=== PATIENT | male | born 1955 | race Caucasian/White ===

== ENCOUNTER → 2017-04-07 | Outpatient (CLI) | payer OTHER, MEDICAID | LOC: FIMAGING 07:42 | PROVIDERS: ATTEND Surgery | DX: C18.7 Malignant neoplasm of sigmoid colon (principal); Z85.038 Personal history of other malignant neoplasm of large intestine ==

== ENCOUNTER 2017-05-19 06:00 | Inpatient (IN) | payer OTHER, MEDICAID ==
[~2017-05-19 06:00] MED LIST: ceFAZolin 3 GM in D5W 100 ML IV ONE
[2017-05-19] MEDS ORDERED: LIDOCAINE 1% 2 ML INJ ID PRN (06:14)
[2017-05-19] MEDS ORDERED: LR 1,000 ML IV ONE (06:14)
[2017-05-19] MEDS ORDERED: BUPIVACAINE 0.5% 30 ML SDV ONE (07:02)
--- NOTE | 2017-05-19 07:06 | PDHPUP ---
History & Physical Update H&P update statement: This history and physical update is based on an assessment of the patient which was completed after admission or registration (within 24 hours), but prior to the surgery/procedure. H&P update: H&P reviewed & patient examined, no change in patient's condition since H&P completed
[2017-05-19] MEDS ORDERED: MIDAZOLAM 2 MG/2 ML VIAL IVP ONE (07:16)
--- NOTE | 2017-05-19 07:16 | PDANEPAE ---
ANE History of Present Illness Large ventral hernia ANE Past Medical History - Cardiovascular History Hx Hypertension: No Hx Arrhythmias: No Hx Chest Pain: No Hx Coronary Artery / Peripheral Vascular Disease: No Hx CHF / Valvular Disease: No Hx Palpitations: No - Pulmonary History Hx COPD: Yes Hx Asthma/Reactive Airway Disease: Yes Hx Recent Upper Respiratory Infection: No Hx Oxygen in Use at Home: No Hx Sleep Apnea: No Sleep Apnea Screening Result - Last Documented: Positive Pulmonary History Comment: CHRONIC PULMONARY PNEUMONITIS. 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 - Neurologic History Hx Cerebrovascular Accident: No Hx Seizures: No Hx Dementia: No - Endocrine History Hx Diabetes: Yes Endocrine History Comment: HYPOTHYROID - Renal History Hx Renal Disorders: Yes Renal History Comment: KIDNEY FAILURE POST SURGERY WITH BOWEL RESECTION - NOW RESOLVED - Liver History Hx Hepatic Disorders: No - Neurological & Psychiatric Hx Hx Neurological and Psychiatric Disorders: Yes Neurological / Psychiatric History Comment: ANXIETY/DEPRESSION - Cancer History Hx Cancer: Yes Cancer History Comment: COLON CANCER - Congenital Disorder History Hx Congenital Disorders: No - GI History Hx Gastrointestinal Disorders: Yes Gastrointestinal History Comment: COLON RESECTION/COLOSTOMY - Other Health History Other Health History: DUMPING SYNDROME - Chronic Pain History Chronic Pain: Yes (L KNEE, NECK, SCIATICA) - Surgical History Prior Surgeries: BOWEL RESECTION W/COLOSTOMY. L KNEE SURG. R TKA. CERVICAL FUSION. HERNIA REPAIR ANE Review of Systems - Exercise capacity METS (RN): 4 METS ANE Patient History - Allergies Allergies/Adverse Reactions: baclofen Allergy (Verified 05/11/17 11:25) - Home Medications Home Medications: Albuterol [Proventil Inhaler HFA (*)] 1 - 2 puffs IH DAILY PRN 05/09/17 [Last Taken 05/19/17 04:45] Cyclobenzaprine [Flexeril 10 MG (*)] 10 mg PO BID 05/09/17 [Last Taken 05/18/17 23:30] Diphenoxylate HCl/Atrop Sulf [Lomotil Tab (*)] 1 tab PO BID PRN 05/09/17 [Last Taken 05/18/17] Fluticasone/Salmeter 250/50Mcg [Advair 250/50 (*)] 1 puffs IH DAILY 05/09/17 [ Last Taken 05/19/17 04:45] HYDROcodone/APAP 10/325 [[place] 10/325 (*)] 1 tab PO Q8HRS PRN 05/09/17 [Last Taken 05/18/17 23:00] Levothyroxine [Synthroid 50 mcg (*)] 50 mcg PO DAILY06 05/09/17 [Last Taken 04/29 09:30] Mirabegron [Myrbetriq] 25 mg PO DAILY 05/09/17 [Last Taken 05/18/17 23:00] Phentermine HCl [Adipex-P] 37.5 mg PO DAILY 05/09/17 [Last Taken 05/18/17 09:30] Sertraline HCl [Zoloft 50mg (*)] 50 mg PO HS 05/09/17 [Last Taken 05/18/17 23:00 ] Zolpidem Tartrate [Ambien 10 mg] 10 mg PO HS 05/09/17 [Last Taken 05/18/17 23:00 ] - NPO status NPO Since - Liquids (Date): 05/18/17 NPO Since - Liquids (Time): 23:15 NPO Since - Solids (Date): 05/18/17 NPO Since - Solids (Time): 22:45 - Smoking Hx Smoking Status: Never smoked - Family Anes Hx Family Hx Anesthesia Complications: NEG ANE Labs/Vital Signs - Vital Signs Blood Pressure: 118/75 Heart Rate: 71 Respiratory Rate: 18 O2 Sat (%): 95 Height: 175.26 cm Weight: 122.47 kg ANE Physical Exam - Airway Neck exam: FROM (S/P C5-7 fusion) Mallampati Score: Class 1 Mouth exam: dentures - Pulmonary Pulmonary: no respiratory distress - Cardiovascular Cardiovascular: regular rate and rhythym - ASA Status ASA Status: III ANE Anesthesia Plan Anesthesia Plan: general endotracheal anesthesia
[2017-05-19] MEDS ORDERED: MIDAZOLAM 2 MG/2 ML VIAL ONE (07:17)
[2017-05-19] MEDS ORDERED: fentaNYL 100 MCG/2 ML INJ ONE ×5 (07:20→14:14)
[2017-05-19] MEDS ORDERED: PROPOFOL 200 MG/20 ML VIAL ONE ×2 (07:20→10:20)
[2017-05-19] MEDS ORDERED: LIDOCAINE 2% 5 ML SDV ONE (07:22)
[2017-05-19] MEDS ORDERED: ROCURONIUM 50 MG/5 ML VIAL ONE ×3 (07:23→10:44)
[2017-05-19] MEDS ORDERED: DEXAMETHASONE 4 MG/ML VIAL ONE (08:41)
[2017-05-19] MEDS ORDERED: PROPOFOL/EMULSION 500 MG/50 ML BOTTLE IV ONE ×2 (08:43→11:17)
[2017-05-19] MEDS ORDERED: THROMBIN (BOVINE) 20,000 UNIT SPRAY TP ONE (09:05)
[2017-05-19] MEDS ORDERED: ONDANSETRON 4 MG/2 ML VIAL IVP PRN (10:02)
[2017-05-19] MEDS ORDERED: PROMETHAZINE HCL 25 MG/ML INJ IVP PRN (10:02)
[2017-05-19] MEDS ORDERED: NALOXONE HCL 0.4 MG/ML INJ IVP PRN ×2 (10:02→14:36)
[2017-05-19] MEDS ORDERED: PHENYLEPHRINE 0.5% NASAL 15 ML SPRAY ONE (10:13)
[2017-05-19] MEDS ORDERED: ERTAPENEM 1 GM in NS 100 ML IV ONE (12:00)
[2017-05-19] MEDS ORDERED: SUGAMMADEX SODIUM 200 MG/2 ML VIAL IVP ONE (13:01)
[2017-05-19] MEDS ORDERED: ONDANSETRON 4 MG/2 ML VIAL ONE (13:01)
[2017-05-19] MEDS ORDERED: PHENYLEPHRINE HCL 100 MCG/ML SYR ONE (13:10)
--- NOTE | 2017-05-19 13:36 | POSTOPPROG ---
Post Op Note Date of Operation: 05/19/17 Surgeon: Sharon Elizabeth Advocacy Director: king marina Anesthesiologist: nicole Anesthesia: GET(General Endotracheal) Pre-op Diagnosis: incarcerated ventral hernia Post-op Diagnosis: same Indication: 61 yo with incarcerated ventral hernia Procedure: lap component release, open ventral hernia repair with mesh, small bowel re Findings: large loss of domain Inf/Abcess present in the surg proc area at time of surgery?: Yes Depth: Organ Space EBL: 100-500 Drains: Antonio Frost Specimen(s): small bowel
[2017-05-19] MEDS: fentaNYL 100 MCG/2 ML INJ IVP PRN ×4 (13:51→14:22)
--- NOTE | 2017-05-19 13:59 | POSTANESTH ---
Post Anesthetic Evaluation Cardiovascular Status: Normal, Stable Respiratory Status: Normal, Stable Level of Consciousness/Mental Status: Can Participate in Eval, Alert and Oriented Pain Control: Adequate, Prn Tx Ordered Nausea/Vomiting Control: Adequate, Prn Tx Ordered Complications Possibly Related to Anesthesia: None Noted
[2017-05-19] MEDS ORDERED: HYDROmorphONE/DILAUDID 1 MG/ML SYR ONE (14:03)
[2017-05-19] MEDS: HYDROmorphONE/DILAUDID 1 MG/ML SYR IVP PRN ×3 (14:05→14:26)
[2017-05-19] MEDS: morphINE PCA 30 MG/30 ML PCA IV PRN (15:19)
[2017-05-19] MEDS: NS 1,000 ML IV SCH (15:19)
[2017-05-19] MEDS: ONDANSETRON 4 MG/2 ML VIAL IVP PRN (18:25)
[2017-05-19] MEDS ORDERED: ALBUTEROL 200 PUFFS/18 GM MDI IH PRN (20:09)
--- NOTE | 2017-05-19 20:52 | GCON ---
[f rep st] CONSULTATION THIS IS A MEDICINE CONSULTATION AT THE REQUEST OF DR. SHARON ELIZABETH FOR GENERAL MEDICAL EVALUATION AND MANAGEMENT OF CHRONIC MEDICAL ISSUES INCLUDING COPD. REFERRING PHYSICIAN: Sharon Elizabeth MD CHIEF COMPLAINT: Status post ventral hernia. HISTORY: This is a 61-year-old man with past medical history of colon cancer, status post partial c olectomy and colostomy placement, as well as hypersensitivity pneumonitis/COPD/reactive airways dise ase, who is being monitored in the ICU status post open ventral hernia repair with mesh. Per report , this was an incarcerated ventral hernia and surgery performed today without clear complication. T he patient states he is currently doing well, with his pain controlled. He does have an NG in place , which he states is uncomfortable, but otherwise no real active complaints. PAST MEDICAL HISTORY: Includes: 1. Sigmoid colon cancer, status post partial colectomy. 2. Hypersensitivity pneumonitis versus COPD/reactive airways disease. 3. History of PE. 4. Hypothyroidism. 5. Morbid obesity. 6. Complications post colectomy of peritonitis, with acute kidney failure. PAST SURGICAL HISTORY: Includes: 1. Partial colectomy. 2. Colostomy. 3. Cervical fusion. 4. Ventral hernia repair, as per above. FAMILY HISTORY: Reviewed and noncontributory. SOCIAL HISTORY: The patient is a nondrinker and nonsmoker. The patient is . REVIEW OF SYSTEMS: Ten-point review of systems obtained negative except as per HPI. HOME MEDICATIONS: Include: 1. Ambien. 2. Flexeril. 3. Synthroid. 4. Jackson. 5. Lomotil. 6. Phentermine. 7. Advair. 8. Albuterol. 9. Sertraline. 10. Myrbetriq. ALLERGIES: Baclofen. PHYSICAL EXAM: VITAL SIGNS: BP 111/64, heart rate 69, respiratory rate 12, O2 sat is 100% on 3 L, temperature is 36.6. GENERAL APPEARANCE: This is an obese man. He is awake and alert. He is in mild distress. EYES: Anicteric. HEENT: NG-tube with greenish output. Oropharynx clear. CARDIOVASCULAR: Regular rate and rhythm, no MRG. PULMONARY: CTA bilaterally to anterior exam. ABDOMEN: Soft, decreased bowel sounds, there is a colostomy in place as well as a midline incision that is bandaged, with an abdominal binder in place. There is diffuse tenderness to palpation, with out rebound or guarding. EXTREMITIES: No clubbing, cyanosis, or edema. SKIN: Warm, dry, well per fused. NEURO/PSYCH: Oriented, appropriate, pleasant. CLINICAL DATA: CBC from 05/15 is within normal limits. Chemistry from the same date is remarkable only for a BUN of 25. ASSESSMENT/PLAN: This is a 61-year-old man with past medical history of hypersensitivity pneumoniti s versus chronic obstructive pulmonary disease as well as colon cancer, status post partial colectom y with colostomy placement, and ventral hernia which is now status post ventral hernia repair. 1. Status post ventral hernia repair. Fairly extensive surgery with a massive ventral hernia prese nt preop. He is doing well thus far postoperatively. He has not yet had return of bowel sounds. Joel jefferson has an NG in place. He will be monitored in ICU for the time being. He will be kept n.p.o. 2. Chronic obstructive pulmonary disease versus hypersensitivity pneumonitis versus reactive airway s disease. The patient states he has either all of these diagnoses or some sort of unusual variant of the 3. He is followed by Pulmonary. He has been relatively asymptomatic, though he uses Advair and p.r.n. albuterol. His pulmonary exam at the time of my evaluation seems to be benign. He is sa turating 100% on 3 L, this likely could be titrated down. Given his body habitus, he likely has a c omponent of obstructive sleep apnea/obesity hypoventilation syndrome. 3. History of sigmoid colon cancer, status post colectomy with colostomy placement. He has been in terested in having colostomy take down, but this is being deferred for the time being. Followed by Surgery. 4. Chronic pain, with continuous narcotic use and dependency. Patient on Jackson and Flexeril as an outpatient. Pain is controlled on those medications. 5. Depression. Continued on sertraline. 6. Disposition: Inpatient status. 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 The patient is new to my care. Old records reviewed and summarized as per HPI and Past Medical Hist ory. Care plan reviewed with surgical PA. Medicine will continue to follow while in-house. /[id number]/MODL
[2017-05-20] MEDS: morphINE PCA 30 MG/30 ML PCA IV PRN ×2 (00:08→12:37)
[2017-05-20] MEDS: NS 1,000 ML IV SCH (00:09)
[2017-05-20] MEDS ORDERED: ZOLPIDEM TARTRATE 5 MG TAB PO ONE (01:38)
[2017-05-20] MEDS: KETOROLAC 30 MG/1 ML SDV IVP PRN ×2 (01:44→07:36)
[2017-05-20 05:51] LABS: % IMMATURE GRANULYOCYTES 0.5 % (0.0-1.1); ABSOLUTE IMMATURE GRANULOCYTES 0.06 10^3/uL (0.00-0.10); ADD DIFF? NO; ADD MORPH? NO; ADD SCAN? NO; ATYPICAL LYMPHOCYTE FLAG 0 (0-99); FRAGMENT RBC FLAG 0 (0-99); HEMATOCRIT 34.3 % (40.0-51.0); HEMOGLOBIN 11.1 g/dL (13.7-17.5); LEFT SHIFT FLG 50 (0-99); LIPEMIA HEMOLYSIS FLAG 80 (0-99); MEAN CELL HEMOGLOBIN 30.3 pg (27.9-34.1); MEAN CELL HEMOGLOBIN CONCENTR. 32.4 g/dL (32.4-36.7); MEAN CELL VOLUME 93.7 fL (81.5-99.8); MEAN PLATELET VOLUME 10.5 fL (8.7-11.7); PLATELET CLUMPS FLAG 10 (0-99); PLATELET COUNT 153 10^3/uL (150-400); RED BLOOD CELL COUNT 3.66 10^6/uL (4.40-6.38); RED CELL DISTRIBUTION WIDTH 13.6 % (11.5-15.2)
[2017-05-20 06:01] LABS: INR 1.18 (0.83-1.16)
[2017-05-20 07:31] LABS: ANION GAP 7 mEq/L (8-16); CALCIUM 7.8 mg/dL (8.5-10.4); CARBON DIOXIDE 26 mEq/l (22-31); CHLORIDE 110 mEq/L (97-110); GLOMERULAR FILTRATION RATE > 60; GLUCOSE 108 mg/dL (70-100); POTASSIUM 4.3 mEq/L (3.5-5.2); SODIUM 143 mEq/L (134-144)
[2017-05-20] MEDS ORDERED: FLUTICASONE/SALMETER 250/50MCG DISKUS IH SCH (09:00)
[2017-05-20] MEDS: ERTAPENEM 1 GM in NS 100 ML IV SCH (09:16)
[2017-05-20] MEDS: FLUTICASONE/SALMETER 250/50MCG DISKUS IH SCH (09:48)
--- NOTE | 2017-05-20 10:06 | HOSPPROG ---
Hospitalist Progress Note Assessment/Plan: DIAGNOSES: -status post large ventral hernia repair -postoperative ileus -history of COPD, as well as possible obesity related breathing issues, all stable at present -chronic pain syndrome on chronic medications for that -history of PE PLANS: -continue current respiratory management -continue current pain management is that seem satisfactory to him -DVT prophylaxis - will follow the blood in drains in his blood counts closely; he is not currently on DVT prophylaxis medications, I will review risk benefit with Dr. Elizabeth SUBJECTIVE: The patient has modest amount of abdominal pain at this time, has had some rumbling but no flatus, no nausea No shortness of breath chest pain or cough No fever symptoms OBJECTIVE Vitals reviewed: Stable without fever Architectural Inspector, my review: Sinus Exam: alert oriented relaxed skin warm dry color ok resps not labored lungs diminished but clear BSs heart regular abd soft, bowel sounds present, some tenderness, blood in both drains limbs warm, no edema iv site ok Laboratory: Some anemia hemoglobin 11 White blood cell count at 12,000 Stable metabolic panel Objective: Vital Signs Temp Pulse Resp BP Pulse Ox 36.6 C 73 15 124/59 H 97 05/20/17 08:00 05/20/17 08:00 05/20/17 08:00 05/20/17 08:00 05/20/17 08:00 Laboratory Results 05/20/17 05:37 05/20/17 05:37 05/19/17 05/20/17 05/21/17 06:59 06:59 06:59 Intake Total 2255 Output Total 1110 Balance 1145 PT 15.0 SEC (12.0-15.0) 05/20/17 05:37 INR 1.18 (0.83-1.16) H 05/20/17 05:37 ICD10 Worksheet Patient Problems: Problems Problem Status Onset Ventral incisional hernia without obstruction or gangrene Acute S/P small bowel resection Acute - ICD10 Problem Qualifiers (1) S/P small bowel resection
--- NOTE | 2017-05-20 11:55 | SOAPPROG ---
SOAP Progress Note Assessment/Plan: Assessment: POD # 1 s/p laparoscopic right component separation, open adhesiolysis with small bowel resection and ventral hernia repair with 20X25 Symbotex dual sided mesh. 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 Expect ileus due to 6 hours OR with adhesiolysis - Keep Lopez one more day for accurate Is and Os. May have some increased abdominal pressure due to hernia repair FEN - NPO excepts meds and occasional ice chips for comfort. May have hard candy or cough drops to ease discomfort of NG Heme/ID - Invanz day 2 of 7. Bowel resection at surgery with permanent mesh. Proph - Protonix and may start Lovenox. Dr. Ramos to discuss with pharmacy if will need bid dosing Endo - Dr. Ramos to manage hypothyroidism Dispo - Med surg, Inpatient. continue PT/OT S: Pain controlled. No nausea. Worked with PT this am O: Lying in bed. Dressing with scant stain JPs with serosanguinous fluid Lungs decreased at bases Regular rate Bowel sounds hypoactive Plan: 05/20/17 11:46 Objective: Vital Signs Temp Pulse Resp BP Pulse Ox 36.6 C 73 15 124/59 H 97 05/20/17 08:00 05/20/17 08:00 05/20/17 08:00 05/20/17 08:00 05/20/17 08:00 Laboratory Results 05/20/17 05:37 05/20/17 05:37 05/19/17 05/20/17 05/21/17 05:59 05:59 05:59 Intake Total 2255 Output Total 1110 140 Balance 1145 -140 PT 15.0 SEC (12.0-15.0) 05/20/17 05:37 INR 1.18 (0.83-1.16) H 05/20/17 05:37 ICD10 Worksheet Patient Problems: Problems Problem Status Onset S/P small bowel resection Acute Ventral incisional hernia without obstruction or gangrene Acute - ICD10 Problem Qualifiers (1) Ventral incisional hernia without obstruction or gangrene (2) S/P small bowel resection
--- NOTE | 2017-05-20 13:34 | GOP ---
[f rep st] OPERATIVE REPORT DATE OF OPERATION: 05/19/2017 SURGEON: Sharon Elizabeth MD PROFESSOR OF ASTRONOMY: MD Dilcia Billingsley, RAHUL ANESTHESIA: General. ANESTHESIOLOGIST: Daryn Rodriguez MD PREOPERATIVE DIAGNOSIS: Incarcerated ventral hernia. POSTOPERATIVE DIAGNOSIS: Incarcerated ventral hernia. PROCEDURE PERFORMED: Laparoscopic component released of left external oblique, open laparotomy with adhesiolysis x 90 minutes, small-bowel resection, and ventral hernia repair with mesh. FINDINGS: Complete loss of domain. SPECIMENS: Small bowel. ESTIMATED BLOOD LOSS: 250 cc. INDICATIONS: The patient is a 61-year-old man with a history of colon cancer, who has developed a large hernia. He is very symptomatic from it. DESCRIPTION OF PROCEDURE: The patient was brought into the operating room, placed supine on the table, and general anesthesia was administered. His ostomy was sequestered. The remaining abdomen was prepped and draped in the usual sterile fashion. I initially made an incision approximately in the 7th intercostal space, and dissected down through the subcutaneous tissues. I created a space and inserted a balloon-tip trocar directed toward the anterior superior iliac spine. I placed a camera and I performed hand insufflation of the balloon. I then connected this to 12 mmHg. I did not see rectus above, but elected to divide India's layer with electrocautery. I placed a 5 mm trocar lateral to the initial trocar and divided India's. There was 1 area of bleeding, and hemostasis was controlled with electrocautery. Next, I removed the working port and I continued my dissection down until I encountered the rectus. This was very deep. I attempted numerous times to insert the balloon in this space. I ultimately was able to place a dissecting balloon to separate out the external oblique from the internal oblique. I placed a camera and, under direct vision, performed hand insufflation. I then removed the balloon and attempted insufflation, however since this was so deep the trocar kept moving into the subcutaneous space. I then obtained a 10 mm extra long trocar and was able to place this underneath the external oblique. I placed insufflation to 12 mmHg. I then deepened the 2nd 5 mm trocar. I was then able to divide the rectus from the inguinal ligament up to the initial trocar. Once this was released, I placed thrombin in the wound. Attention was then drawn to the open hernia repair. I made an incision over his previous upper midline scar and very superficially encountered the hernia sac. I continued my dissection to fully dissect out the hernia. I had to perform lysis of adhesions for greater than 90 minutes. During adhesiolysis, one small enterotomy was made which was quickly controlled with a 3-0 Vicryl. After the bowel was free, I examined for any additional injuries. The area where the enterotomy occured, the bowel was thickened. I elected to perform a small bowel resection. I aligned the small bowel on antimesenteric borders. I placed 3-0 Vicryl stay sutures. I made an enterotomy in each limb of the bowel and inserted a FRANCISCA 75 to create an end-to-end functional [id number] anastomosis. I then closed the enterotomy and removed the small piece of thickened bowel with a FRANCISCA 75. The mesenteric defect was closed with 3-0 Vicryl. There was minimal spillage. The anastomosis was widely patent, and no leaks were noted. I then ran his entire small bowel, and no other injuries were noted. Attention was then drawn to re-approximating fascia. Unfortunately, even with the component release, there was not enough release to bring the fascia together. I did not have the option to perform a component release on the right side due to the ostomy. I selected a piece of Symbotex mesh 20/25 mesh to fix the hernia. I began placing stay sutures through the fascia. As I was coming around the pelvis, I noted that the fascial layer was much deeper. He essentially had complete loss of abdominal domain. I placed an intraperitoneal drain which exited the left lower quadrant, and sutured it in place with 3-0 nylon. I placed the Symbotex mesh and sutured this into place circumferentially around the fascia. I checked the placement of the mesh to the fascial edges numerous times to make sure that there was no gap where there could be potential breach allowing bowel to come through the mesh. Next, I was able to close the hernia sac over the fascia with #1 PDS. The hernia sac was very thickened. I placed a subcutaneous 15 round silicone drain, which was also sutured into place with 3-0 nylon. The skin was closed with lj. An Aquacel Ag surgical dressing was applied over the midline incision. He was awakened in the operating room, extubated, and transferred to PACU in stable condition. /[id number]/MODL MTDD
[2017-05-21] MEDS: NS 1,000 ML IV SCH ×3 (00:16→21:07)
[2017-05-21] MEDS: ERTAPENEM 1 GM in NS 100 ML IV SCH (08:03)
--- NOTE | 2017-05-21 10:21 | SOAPPROG ---
SOAP Progress Note Assessment/Plan: Assessment: POD # 2 s/p laparoscopic right component separation, open adhesiolysis with small bowel resection and ventral hernia repair with 20X25 Symbotex dual sided mesh. 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 Expect ileus due to 6 hours OR with adhesiolysis. Continue NG - Can remove Lopez. May have some increased abdominal pressure due to hernia repair FEN - NPO excepts meds and occasional ice chips for comfort. May have hard candy or cough drops to ease discomfort of NG Heme/ID - Invanz day 3 of 7. Bowel resection at surgery with permanent mesh. Proph - Protonix and Lovenox Endo - Dr. Ramos to manage hypothyroidism Dispo - Inpatient. continue PT/OT S: Pain controlled. No nausea. O: Lying in bed. Dressing with scant stain JPs with serosanguinous fluid Lungs decreased at bases Regular rate Bowel sounds hypoactive Plan: 05/20/17 11:46 05/21/17 10:20 05/21/17 13:14 Objective: Vital Signs Temp Pulse Resp BP Pulse Ox 36.6 C 83 18 111/83 H 94 05/21/17 08:00 05/21/17 08:00 05/21/17 08:00 05/21/17 08:00 05/21/17 08:00 Laboratory Results 05/20/17 05:37 05/20/17 05:37 05/20/17 05/21/17 05/22/17 05:59 05:59 05:59 Intake Total 2255 923 1196 Output Total 1110 1691 100 Balance 1145 -768 1096 PT 15.0 SEC (12.0-15.0) 05/20/17 05:37 INR 1.18 (0.83-1.16) H 05/20/17 05:37 ICD10 Worksheet Patient Problems: Problems Problem Status Onset S/P small bowel resection Acute Ventral incisional hernia without obstruction or gangrene Acute - ICD10 Problem Qualifiers (1) Ventral incisional hernia without obstruction or gangrene (2) S/P small bowel resection
[2017-05-21] MEDS: morphINE PCA 30 MG/30 ML PCA IV PRN ×2 (11:54→23:01)
[2017-05-21 12:44] LABS: % IMMATURE GRANULYOCYTES 0.5 % (0.0-1.1); ABSOLUTE IMMATURE GRANULOCYTES 0.06 10^3/uL (0.00-0.10); ADD DIFF? NO; ADD MORPH? NO; ADD SCAN? NO; ATYPICAL LYMPHOCYTE FLAG 0 (0-99); FRAGMENT RBC FLAG 0 (0-99); HEMATOCRIT 31.5 % (40.0-51.0); HEMOGLOBIN 9.9 g/dL (13.7-17.5); LEFT SHIFT FLG 30 (0-99); LIPEMIA HEMOLYSIS FLAG 80 (0-99); MEAN CELL HEMOGLOBIN 30.2 pg (27.9-34.1); MEAN CELL HEMOGLOBIN CONCENTR. 31.4 g/dL (32.4-36.7); MEAN PLATELET VOLUME 10.2 fL (8.7-11.7); PLATELET CLUMPS FLAG 0 (0-99); PLATELET COUNT 136 10^3/uL (150-400); RED BLOOD CELL COUNT 3.28 10^6/uL (4.40-6.38)
[2017-05-21 12:59] LABS: ANION GAP 5 mEq/L (8-16); CALCIUM 7.9 mg/dL (8.5-10.4); CARBON DIOXIDE 28 mEq/l (22-31); CHLORIDE 111 mEq/L (97-110); CREATININE 0.9 mg/dL (0.7-1.3); GLOMERULAR FILTRATION RATE > 60; GLUCOSE 99 mg/dL (70-100); POTASSIUM 4.3 mEq/L (3.5-5.2); SODIUM 144 mEq/L (134-144)
--- NOTE | 2017-05-21 15:24 | HOSPPROG ---
Hospitalist Progress Note Assessment/Plan: DIAGNOSES: -status post large ventral hernia repair -postoperative ileus -expected post hemorrhagic anemia after surgery -history of COPD, as well as possible obesity related breathing issues, all stable at present -chronic pain syndrome on chronic medications for that -history of PE PLANS: -continue current respiratory management -continue current pain management is that seem satisfactory to him -DVT prophylaxis at this time will add lovenox, follow closely SUBJECTIVE: really not much pain no flatus, some rumbling no sob, chest pain or cough OBJECTIVE Vitals reviewed: Stable without fever Exam: alert oriented relaxed skin warm dry color ok resps not labored lungs diminished but clear BSs heart regular abd soft, bowel sounds present, some tenderness, drain fluid less bloody limbs warm, no edema iv site ok Laboratory: anemia slightly worse at 9.9 Objective: Vital Signs Temp Pulse Resp BP Pulse Ox 37.1 C 79 18 114/79 97 05/21/17 11:00 05/21/17 14:00 05/21/17 14:00 05/21/17 14:00 05/21/17 14:00 Laboratory Results 05/21/17 12:38 05/21/17 12:38 05/20/17 05/21/17 05/22/17 06:59 06:59 06:59 Intake Total 2255 2119 Output Total 1110 1791 705 Balance 1145 328 -705 PT 15.0 SEC (12.0-15.0) 05/20/17 05:37 INR 1.18 (0.83-1.16) H 05/20/17 05:37 ICD10 Worksheet Patient Problems: Problems Problem Status Onset S/P small bowel resection Acute Ventral incisional hernia without obstruction or gangrene Acute - ICD10 Problem Qualifiers (1) S/P small bowel resection
[2017-05-21] MEDS: ONDANSETRON 4 MG/2 ML VIAL IVP PRN (15:44)
[2017-05-21] MEDS ORDERED: ZOLPIDEM TARTRATE 5 MG TAB PO ONE (20:15)
[2017-05-22 04:52] LABS: % IMMATURE GRANULYOCYTES 0.5 % (0.0-1.1); ABSOLUTE IMMATURE GRANULOCYTES 0.06 10^3/uL (0.00-0.10); ADD DIFF? NO; ADD MORPH? NO; ADD SCAN? NO; ATYPICAL LYMPHOCYTE FLAG 0 (0-99); FRAGMENT RBC FLAG 0 (0-99); HEMATOCRIT 29.7 % (40.0-51.0); HEMOGLOBIN 9.2 g/dL (13.7-17.5); LEFT SHIFT FLG 30 (0-99); LIPEMIA HEMOLYSIS FLAG 80 (0-99); MEAN CELL HEMOGLOBIN 30.3 pg (27.9-34.1); MEAN CELL VOLUME 97.7 fL (81.5-99.8); MEAN PLATELET VOLUME 10.4 fL (8.7-11.7); PLATELET CLUMPS FLAG 0 (0-99); PLATELET COUNT 143 10^3/uL (150-400); RED BLOOD CELL COUNT 3.04 10^6/uL (4.40-6.38); RED CELL DISTRIBUTION WIDTH 13.8 % (11.5-15.2)
[2017-05-22 05:07] LABS: ANION GAP 6 mEq/L (8-16); CALCIUM 7.7 mg/dL (8.5-10.4); CARBON DIOXIDE 28 mEq/l (22-31); CHLORIDE 110 mEq/L (97-110); CREATININE 0.8 mg/dL (0.7-1.3); GLOMERULAR FILTRATION RATE > 60; GLUCOSE 85 mg/dL (70-100); POTASSIUM 4.2 mEq/L (3.5-5.2); SODIUM 144 mEq/L (134-144)
[2017-05-22] MEDS: ERTAPENEM 1 GM in NS 100 ML IV SCH (08:17)
[2017-05-22] MEDS: ALBUTEROL 200 PUFFS/18 GM MDI IH PRN (08:28)
[2017-05-22] MEDS: FLUTICASONE/SALMETER 250/50MCG DISKUS IH SCH (08:29)
[2017-05-22] MEDS: morphINE PCA 30 MG/30 ML PCA IV PRN ×2 (09:10→22:02)
[2017-05-22] MEDS: ENOXAPARIN 40 MG/0.4 ML SYR SC SCH (09:10)
--- NOTE | 2017-05-22 11:57 | SOAPPROG ---
SOAP Progress Note Assessment/Plan: Assessment: 61yo M POD #3 s/p lap R component separation, open adhesiolysis with small bowel resection and ventral hernia repair with 20X25 Symbotex dual sided mesh. 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 NG clamp trial. - D/c pulido FEN - NPO for now until NG out Heme/ID - Invanz day 4 of 7. Bowel resection at surgery with permanent mesh. Proph - Protonix and Lovenox Endo - hospitalists to manage hypothyroidism Dispo - Inpatient until return of bowel function. continue PT/OT S: Pain controlled. No nausea. Hungry. Has walked around unit already this morning. O: Sitting up in chair, comfortable, NAD, meditating Dressing with min stain JPs with serosanguinous fluid Lungs decreased at bases Regular rate Bowel sounds hypoactive Ostomy appliance empty Objective: Vital Signs Temp Pulse Resp BP Pulse Ox 36.8 C 81 18 135/71 H 95 05/22/17 10:00 05/22/17 10:00 05/22/17 10:00 05/22/17 10:00 05/22/17 10:00 Laboratory Results 05/22/17 04:44 05/22/17 04:44 05/21/17 05/22/17 05/23/17 05:59 05:59 05:59 Intake Total 923 2146 1400 Output Total 1691 9565 300 Balance -768 -549 1100 PT 15.0 SEC (12.0-15.0) 05/20/17 05:37 INR 1.18 (0.83-1.16) H 05/20/17 05:37 ICD10 Worksheet Patient Problems: Problems Problem Status Onset S/P small bowel resection Acute Ventral incisional hernia without obstruction or gangrene Acute
[2017-05-22] MEDS: NS 1,000 ML IV SCH (16:46)
--- NOTE | 2017-05-22 17:50 | HOSPPROG ---
Hospitalist Progress Note Assessment/Plan: * SB resection/ESAU with Ventral hernia repair * Post-op ileus -NGT * COPD/HSP -Advair * Obesity - BMI 39 -watch respiratory status closely on narcotics * h/o PE * Chronic pain -restart home meds when taking PO Subjective: no complaints except discomfort of NGT Objective: Vital Signs Temp Pulse Resp BP Pulse Ox 37.0 C 76 18 139/70 H 94 05/22/17 16:00 05/22/17 16:00 05/22/17 16:00 05/22/17 16:00 05/22/17 16:00 Laboratory Results 05/22/17 04:44 05/22/17 04:44 05/21/17 05/22/17 05/23/17 05:59 05:59 05:59 Intake Total 923 2146 1400 Output Total 1691 2695 610 Balance -768 -549 790 PT 15.0 SEC (12.0-15.0) 05/20/17 05:37 INR 1.18 (0.83-1.16) H 05/20/17 05:37 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 Constitutional: no apparent distress, appears nourished, not in pain Cardiovascular: regular rate and rhythym, no murmur, rub, or gallop Respiratory: no respiratory distress, no rales or rhonchi, clear to auscultation Gastrointestinal: soft, non-tender abdomen, no palpable masses Skin: no rashes or abrasions, no fluctuance, no induration Neurologic: AAOx3, sensation intact bilaterally Psychiatric: interacting appropriately, not anxious, not encephalopathic, thought process linear ICD10 Worksheet Patient Problems: Problems Problem Status Onset S/P small bowel resection Acute Ventral incisional hernia without obstruction or gangrene Acute
[2017-05-22] MEDS ORDERED: TEMAZEPAM 15 MG CAP PO PRN (22:17)
[2017-05-22] MEDS ORDERED: ZOLPIDEM TARTRATE 5 MG TAB PO PRN (22:18)
[2017-05-23] MEDS: NS 1,000 ML IV SCH ×2 (02:48→13:24)
[2017-05-23] MEDS: FLUTICASONE/SALMETER 250/50MCG DISKUS IH SCH ×2 (07:13→07:50)
[2017-05-23] MEDS: ALBUTEROL 200 PUFFS/18 GM MDI IH PRN (07:50)
[2017-05-23] MEDS: ENOXAPARIN 40 MG/0.4 ML SYR SC SCH (09:10)
[2017-05-23] MEDS: ERTAPENEM 1 GM in NS 100 ML IV SCH (09:10)
--- NOTE | 2017-05-23 12:50 | SOAPPROG ---
SOAP Progress Note Assessment/Plan: Assessment: POD # 4 s/p laparoscopic right component separation, open adhesiolysis with small bowel resection and ventral hernia repair with 20X25 Symbotex dual sided mesh. Complete loss of abdominal domain and was unable to reapproximate fascia despite component separation Asthma History colon cancer COPD Hypothyroidism History of PE History of renal failure Morbid Obesity Neuro - [employer] W[employer]- Would use toradol sparingly since history of morbid obesity Resp - Appreciate hospitalists managing asthma and COPD Cardiac - Monitor for hemodynamic instability GI - Awaiting bowel function to return. Expect ileus due to 6 hours OR with adhesiolysis. When gas in ostomy appliance can advance diet FEN - Clears Heme/ID - Invanz day 5 of 7. Bowel resection at surgery with permanent mesh. Proph - Protonix and Lovenox Endo - Hospitalists to manage hypothyroidism Dispo - Inpatient. continue PT/OT S: Pain controlled. No nausea. O: Sitting in chair Dressing with scant stain JPs with serosanguinous fluid Lungs decreased at bases Regular rate Ostomy RUQ with no stool or gas Plan: 05/20/17 11:46 05/21/17 10:20 05/21/17 13:14 05/23/17 12:49 Objective: Vital Signs Temp Pulse Resp BP Pulse Ox 37.0 C 77 18 120/71 95 05/23/17 11:47 05/23/17 11:47 05/23/17 11:47 05/23/17 11:47 05/23/17 11:47 Laboratory Results 05/22/17 04:44 05/22/17 04:44 05/22/17 05/23/17 05/24/17 05:59 05:59 05:59 Intake Total 2146 5452 Output Total 2695 1850 Balance -549 3602 PT 15.0 SEC (12.0-15.0) 05/20/17 05:37 INR 1.18 (0.83-1.16) H 05/20/17 05:37 ICD10 Worksheet Patient Problems: Problems Problem Status Onset S/P small bowel resection Acute Ventral incisional hernia without obstruction or gangrene Acute - ICD10 Problem Qualifiers (1) Ventral incisional hernia without obstruction or gangrene (2) S/P small bowel resection
[2017-05-23] MEDS: morphINE PCA 30 MG/30 ML PCA IV PRN (16:38)
--- NOTE | 2017-05-23 16:42 | HOSPPROG ---
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 Objective: Vital Signs Temp Pulse Resp BP Pulse Ox 37.0 C 79 16 123/73 H 99 05/23/17 15:46 05/23/17 15:46 05/23/17 15:46 05/23/17 15:46 05/23/17 15:46 Laboratory Results 05/22/17 04:44 05/22/17 04:44 05/22/17 05/23/17 05/24/17 05:59 05:59 05:59 Intake Total 2146 5452 375 Output Total 2695 1850 515 Balance -549 3602 -140 PT 15.0 SEC (12.0-15.0) 05/20/17 05:37 INR 1.18 (0.83-1.16) H 05/20/17 05:37 - Physical Exam Constitutional: no apparent distress, appears nourished, not in pain Cardiovascular: regular rate and rhythym, no murmur, rub, or gallop Respiratory: no respiratory distress, no rales or rhonchi, clear to auscultation Gastrointestinal: normoactive bowel sounds, soft, non-tender abdomen, no palpable masses Skin: no rashes or abrasions, no fluctuance, no induration Neurologic: AAOx3, sensation intact bilaterally Psychiatric: interacting appropriately, not anxious, not encephalopathic, thought process linear ICD10 Worksheet Patient Problems: Problems Problem Status Onset S/P small bowel resection Acute Ventral incisional hernia without obstruction or gangrene Acute
[2017-05-23] MEDS: HYDROCODONE/APAP 10/325 TAB PO PRN (18:05)
[2017-05-23] MEDS ORDERED: NON-FORMULARY NEW DRUG (Zolpidem Tartrate [Ambien 10 Mg] 10 MG) PO SCH (21:00)
[2017-05-23] MEDS: CYCLOBENZAPRINE 10 MG TAB PO SCH (21:22)
[2017-05-23] MEDS: ZOLPIDEM TARTRATE 5 MG TAB PO SCH (21:22)
[2017-05-23] MEDS: SERTRALINE HCL 50 MG TAB PO SCH (21:22)
[2017-05-24 05:44] LABS: % IMMATURE GRANULYOCYTES 0.5 % (0.0-1.1); ABSOLUTE IMMATURE GRANULOCYTES 0.04 10^3/uL (0.00-0.10); ADD DIFF? NO; ADD MORPH? NO; ADD SCAN? NO; ATYPICAL LYMPHOCYTE FLAG 0 (0-99); FRAGMENT RBC FLAG 0 (0-99); HEMATOCRIT 28.5 % (40.0-51.0); LEFT SHIFT FLG 50 (0-99); LIPEMIA HEMOLYSIS FLAG 80 (0-99); MEAN CELL HEMOGLOBIN 30.1 pg (27.9-34.1); MEAN CELL HEMOGLOBIN CONCENTR. 31.6 g/dL (32.4-36.7); MEAN CELL VOLUME 95.3 fL (81.5-99.8); MEAN PLATELET VOLUME 10.2 fL (8.7-11.7); PLATELET CLUMPS FLAG 0 (0-99); PLATELET COUNT 197 10^3/uL (150-400); RED BLOOD CELL COUNT 2.99 10^6/uL (4.40-6.38); RED CELL DISTRIBUTION WIDTH 13.6 % (11.5-15.2)
[2017-05-24 06:00] LABS: ALANINE AMINOTRANSFERASE 24 IU/L (21-72); ALBUMIN 2.3 g/dL (3.5-5.0); ALKALINE PHOSPHATASE 51 IU/L (38-126); ANION GAP 9 mEq/L (8-16); ASPARTATE AMINOTRANSFERASE 19 IU/L (17-59); BILIRUBIN,TOTAL 1.1 mg/dL (0.1-1.4); CALCIUM 8.1 mg/dL (8.5-10.4); CARBON DIOXIDE 26 mEq/l (22-31); CHLORIDE 108 mEq/L (97-110); CREATININE 0.7 mg/dL (0.7-1.3); GLOMERULAR FILTRATION RATE > 60; GLUCOSE 96 mg/dL (70-100); POTASSIUM 3.8 mEq/L (3.5-5.2); SODIUM 143 mEq/L (134-144)
[2017-05-24] MEDS: LEVOTHYROXINE 50 MCG TAB PO SCH (06:21)
[2017-05-24] MEDS: ERTAPENEM 1 GM in NS 100 ML IV SCH (07:34)
[2017-05-24] MEDS: ENOXAPARIN 40 MG/0.4 ML SYR SC SCH (08:31)
[2017-05-24] MEDS: CYCLOBENZAPRINE 10 MG TAB PO SCH ×2 (08:31→20:58)
[2017-05-24] MEDS: Mirabegron [Myrbetriq] 25 MG PO SCH (10:27)
[2017-05-24] MEDS: Phentermine Hcl [Adipex-P] 37.5 MG PO SCH (10:27)
[2017-05-24] MEDS ORDERED: POLYETHYLENE GLYCOL 3350 17 GM PKT PO PRN (12:04)
[2017-05-24] MEDS ORDERED: LACTULOSE 20 GM/30 ML UDCUP PO PRN (12:04)
[2017-05-24] MEDS ORDERED: MAGNESIUM HYDROXIDE 30 ML UDCUP PO PRN (12:04)
--- NOTE | 2017-05-24 12:04 | SOAPPROG ---
SOAP Progress Note Assessment/Plan: Assessment: 61yo M POD #3 s/p lap R component separation, open adhesiolysis with small bowel resection and ventral hernia repair with 20X25 Symbotex dual sided mesh. Complete loss of abdominal domain and was unable to reapproximate fascia despite component separation Asthma History colon cancer COPD Hypothyroidism History of PE History of renal failure Morbid Obesity Neuro - dc safety lead Resp - Appreciate hospitalists managing asthma and COPD Cardiac - Stable GI - Passing flatus. - voiding spont FEN - clear liquids Heme/ID - Invanz day of 7. Bowel resection at surgery with permanent mesh. Proph - Protonix and Lovenox Endo - hospitalists to manage hypothyroidism Dispo - Inpatient until return of bowel function. continue PT/OT S: O: Sitting up in chair, comfortable, NAD, meditating Dressing with min stain JPs with serosanguinous fluid Lungs decreased at bases Regular rate Bowel sounds hypoactive Ostomy appliance with stool 05/24/17 12:03 Objective: Vital Signs Temp Pulse Resp BP Pulse Ox 36.9 C 77 18 136/76 H 95 05/24/17 10:00 05/24/17 10:00 05/24/17 10:00 05/24/17 10:00 05/24/17 10:00 Laboratory Results 05/24/17 04:36 05/24/17 04:36 05/23/17 05/24/17 05/25/17 05:59 05:59 05:59 Intake Total 5452 375 250 Output Total 1850 940 500 Balance 3602 -565 -250 PT 15.0 SEC (12.0-15.0) 05/20/17 05:37 INR 1.18 (0.83-1.16) H 05/20/17 05:37 ICD10 Worksheet Patient Problems: Problems Problem Status Onset S/P small bowel resection Acute Ventral incisional hernia without obstruction or gangrene Acute
--- NOTE | 2017-05-24 16:37 | HOSPPROG ---
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 Subjective: no complaints, tired as he slept poorly Objective: Vital Signs Temp Pulse Resp BP Pulse Ox 37.2 C 75 16 145/80 H 95 05/24/17 16:30 05/24/17 16:30 05/24/17 16:30 05/24/17 16:30 05/24/17 16:30 Laboratory Results 05/24/17 04:36 05/24/17 04:36 05/23/17 05/24/17 05/25/17 05:59 05:59 05:59 Intake Total 5452 375 250 Output Total 1850 940 500 Balance 3602 -565 -250 PT 15.0 SEC (12.0-15.0) 05/20/17 05:37 INR 1.18 (0.83-1.16) H 05/20/17 05:37 - Physical Exam Constitutional: no apparent distress, appears nourished, not in pain Cardiovascular: regular rate and rhythym, no murmur, rub, or gallop Respiratory: no respiratory distress, no rales or rhonchi, clear to auscultation Gastrointestinal: normoactive bowel sounds, soft, non-tender abdomen, no palpable masses Skin: no rashes or abrasions, no fluctuance, no induration Neurologic: AAOx3, sensation intact bilaterally Psychiatric: interacting appropriately, not anxious, not encephalopathic, thought process linear ICD10 Worksheet Patient Problems: Problems Problem Status Onset S/P small bowel resection Acute Ventral incisional hernia without obstruction or gangrene Acute
[2017-05-24] MEDS: NS 1,000 ML IV SCH (17:29)
[2017-05-24] MEDS: ZOLPIDEM TARTRATE 5 MG TAB PO SCH (20:58)
[2017-05-24] MEDS: SERTRALINE HCL 50 MG TAB PO SCH (20:58)
[2017-05-24] MEDS: SENNOSIDES/DOCUSATE SODIUM TAB PO SCH (20:58)
[2017-05-25] MEDS: LEVOTHYROXINE 50 MCG TAB PO SCH (06:26)
[2017-05-25] MEDS: FLUTICASONE/SALMETER 250/50MCG DISKUS IH SCH (07:45)
[2017-05-25] MEDS: ERTAPENEM 1 GM in NS 100 ML IV SCH (07:46)
[2017-05-25] MEDS: CYCLOBENZAPRINE 10 MG TAB PO SCH ×2 (07:49→21:08)
[2017-05-25] MEDS: ENOXAPARIN 40 MG/0.4 ML SYR SC SCH (07:49)
[2017-05-25] MEDS: HYDROCODONE/APAP 10/325 TAB PO PRN ×3 (07:59→19:46)
[2017-05-25] MEDS: Phentermine Hcl [Adipex-P] 37.5 MG PO SCH (08:15)
[2017-05-25] MEDS: Mirabegron [Myrbetriq] 25 MG PO SCH (08:15)
[2017-05-25] MEDS: SENNOSIDES/DOCUSATE SODIUM TAB PO SCH ×3 (08:16→21:08)
[2017-05-25] MEDS: NS 1,000 ML IV SCH (11:59)
--- NOTE | 2017-05-25 17:23 | HOSPPROG ---
Hospitalist Progress Note Assessment/Plan: * SB resection/ESAU with Ventral hernia repair * Post-op ileus -advanced diet per surgery * COPD/HSP -Advair * Obesity - BMI 39 -watch respiratory status closely on narcotics * h/o PE - Lovenox prophylaxis * Chronic pain -back to home meds * Hypoxia -CXR negative -given history of PE and high risk status - will check CT chest rule out PE Subjective: no complaints, no CP/SOB Objective: Vital Signs Temp Pulse Resp BP Pulse Ox 37.7 C 77 20 124/68 H 94 05/25/17 16:00 05/25/17 16:00 05/25/17 16:00 05/25/17 16:00 05/25/17 16:00 Laboratory Results 05/24/17 04:36 05/24/17 04:36 05/24/17 05/25/17 05/26/17 05:59 05:59 05:59 Intake Total 375 450 Output Total 940 1415 310 Balance -565 -965 -310 PT 15.0 SEC (12.0-15.0) 05/20/17 05:37 INR 1.18 (0.83-1.16) H 05/20/17 05:37 CXR viewed, my personal interpretation is - unremarkable Recheck CBC/7 in am - Physical Exam Constitutional: no apparent distress, appears nourished, not in pain Cardiovascular: regular rate and rhythym, no murmur, rub, or gallop Respiratory: no respiratory distress, no rales or rhonchi, clear to auscultation Gastrointestinal: normoactive bowel sounds, soft, non-tender abdomen, no palpable masses Skin: no rashes or abrasions, no fluctuance, no induration Neurologic: AAOx3, sensation intact bilaterally Psychiatric: interacting appropriately, not anxious, not encephalopathic, thought process linear ICD10 Worksheet Patient Problems: Problems Problem Status Onset S/P small bowel resection Acute Ventral incisional hernia without obstruction or gangrene Acute
[2017-05-25] MEDS ORDERED: IOPAMIDOL (ISOVUE 370) 100 ML BTL IV ONE (17:48)
[2017-05-25] MEDS: ALBUTEROL 200 PUFFS/18 GM MDI IH PRN (21:04)
[2017-05-25] MEDS: ZOLPIDEM TARTRATE 5 MG TAB PO SCH (21:08)
[2017-05-25] MEDS: SERTRALINE HCL 50 MG TAB PO SCH (21:08)
--- NOTE | 2017-05-25 23:01 | SOAPPROG ---
SOAP Progress Note Assessment/Plan: Assessment: POD # 6 s/p laparoscopic right component separation, open adhesiolysis with small bowel resection and ventral hernia repair with 20X25 Symbotex dual sided mesh. Complete loss of abdominal domain and was unable to reapproximate fascia despite component separation Asthma History colon cancer COPD Hypothyroidism History of PE History of renal failure Morbid Obesity Neuro - oral pain medications Resp - Appreciate hospitalists managing asthma and COPD. CTA today without PE Cardiac - Monitor for hemodynamic instability GI - Gas and Stool. Advance diet Heme/ID - Invanz day 7 of 7. Bowel resection at surgery with permanent mesh. Proph - Protonix and Lovenox Endo - Hospitalists to manage hypothyroidism Dispo - Inpatient. continue PT/OT S: Pain controlled. Not hungry. O: Sitting in chair Dressing with scant stain JPs with serosanguinous fluid Lungs decreased at bases Regular rate Ostomy RUQ with stool and gas Plan: 05/20/17 11:46 05/21/17 10:20 05/21/17 13:14 05/23/17 12:49 05/25/17 23:00 Objective: Vital Signs Temp Pulse Resp BP Pulse Ox 36.9 C 82 18 134/73 H 92 05/25/17 22:39 05/25/17 22:39 05/25/17 22:39 05/25/17 22:39 05/25/17 22:39 Laboratory Results 05/24/17 04:36 05/24/17 04:36 05/24/17 05/25/17 05/26/17 05:59 05:59 05:59 Intake Total 375 450 Output Total 940 1415 900 [facility] -565 -965 -900 PT 15.0 SEC (12.0-15.0) 05/20/17 05:37 INR 1.18 (0.83-1.16) H 05/20/17 05:37 ICD10 Worksheet Patient Problems: Problems Problem Status Onset S/P small bowel resection Acute Ventral incisional hernia without obstruction or gangrene Acute - ICD10 Problem Qualifiers (1) Ventral incisional hernia without obstruction or gangrene (2) S/P small bowel resection
[2017-05-26] MEDS: LEVOTHYROXINE 50 MCG TAB PO SCH (04:21)
[2017-05-26 05:09] LABS: % IMMATURE GRANULYOCYTES 1.4 % (0.0-1.1); ABSOLUTE IMMATURE GRANULOCYTES 0.13 10^3/uL (0.00-0.10); ADD DIFF? NO; ADD MORPH? NO; ADD SCAN? NO; ATYPICAL LYMPHOCYTE FLAG 50 (0-99); FRAGMENT RBC FLAG 0 (0-99); HEMATOCRIT 30.5 % (40.0-51.0); HEMOGLOBIN 9.7 g/dL (13.7-17.5); LEFT SHIFT FLG 30 (0-99); LIPEMIA HEMOLYSIS FLAG 80 (0-99); MEAN CELL HEMOGLOBIN 30.3 pg (27.9-34.1); MEAN CELL HEMOGLOBIN CONCENTR. 31.8 g/dL (32.4-36.7); MEAN CELL VOLUME 95.3 fL (81.5-99.8); PLATELET CLUMPS FLAG 10 (0-99); PLATELET COUNT 215 10^3/uL (150-400); RED CELL DISTRIBUTION WIDTH 13.6 % (11.5-15.2)
[2017-05-26 05:27] LABS: ANION GAP 11 mEq/L (8-16); CALCIUM 8.3 mg/dL (8.5-10.4); CARBON DIOXIDE 27 mEq/l (22-31); CHLORIDE 105 mEq/L (97-110); CREATININE 0.8 mg/dL (0.7-1.3); GLOMERULAR FILTRATION RATE > 60; GLUCOSE 93 mg/dL (70-100); POTASSIUM 3.5 mEq/L (3.5-5.2); SODIUM 143 mEq/L (134-144)
[2017-05-26] MEDS: ERTAPENEM 1 GM in NS 100 ML IV SCH (08:09)
[2017-05-26] MEDS: CYCLOBENZAPRINE 10 MG TAB PO SCH ×2 (08:11→21:49)
[2017-05-26] MEDS: ENOXAPARIN 40 MG/0.4 ML SYR SC SCH (08:13)
[2017-05-26] MEDS: FLUTICASONE/SALMETER 250/50MCG DISKUS IH SCH (08:14)
[2017-05-26] MEDS: Phentermine Hcl [Adipex-P] 37.5 MG PO SCH (08:15)
[2017-05-26] MEDS: Mirabegron [Myrbetriq] 25 MG PO SCH (08:15)
[2017-05-26] MEDS: SENNOSIDES/DOCUSATE SODIUM TAB PO SCH ×2 (08:16→21:47)
[2017-05-26] MEDS: HYDROCODONE/APAP 10/325 TAB PO PRN ×3 (09:08→21:48)
--- NOTE | 2017-05-26 13:33 | HOSPPROG ---
Hospitalist Progress Note Assessment/Plan: 61y male with hernia repair. First encounter, chart reviewed. D/W CM. * SB resection/ESAU with Ventral hernia repair FLO in place significant drainage follow * Post-op ileus -advanced diet per surgery tolerating food * COPD/HSP -Advair * Obesity - BMI 39 -watch respiratory status closely on narcotics * h/o PE - Lovenox prophylaxis * Chronic pain -back to home meds * Hypoxia -likely related to effusions and obesity with ATX -CXR negative -given history of PE and high risk status - will check CT chest rule out PE, negative for pe *Lad calcification fu outpt *Dispo unclear will need HHC at minimum per surgery Subjective: Up in the chair. eating breakfast. No complaints. Objective: Vital Signs Temp Pulse Resp BP Pulse Ox 37.0 C 91 18 121/64 H 92 05/26/17 11:13 05/26/17 11:13 05/26/17 11:13 05/26/17 11:13 05/26/17 11:13 Laboratory Results 05/26/17 04:31 05/26/17 04:31 05/25/17 05/26/17 05/27/17 05:59 05:59 05:59 Intake Total 450 Output Total 1415 1340 300 Balance -965 -1340 -300 PT 15.0 SEC (12.0-15.0) 05/20/17 05:37 INR 1.18 (0.83-1.16) H 05/20/17 05:37 - Physical Exam Constitutional: not in pain, chronically ill appearing, obese Eyes: PERRL, anicteric sclera, EOMI Ears, Nose, Mouth, Throat: moist mucous membranes, hearing normal, ears appear normal Cardiovascular: regular rate and rhythym, edema, No JVD Respiratory: no respiratory distress, no rales or rhonchi, reduced air movement Gastrointestinal: normoactive bowel sounds, tenderness, No ascites Skin: warm, normal color, No mottled Musculoskeletal: no joint effusions, muscular tenderness, generalized weakness Neurologic: AAOx3 Psychiatric: not anxious, not encephalopathic, thought process linear ICD10 Worksheet Patient Problems: Problems Problem Status Onset Ventral incisional hernia without obstruction or gangrene Acute S/P small bowel resection Acute
[2017-05-26] MEDS: ALBUTEROL 200 PUFFS/18 GM MDI IH PRN (20:15)
[2017-05-26] MEDS: ZOLPIDEM TARTRATE 5 MG TAB PO SCH (21:47)
[2017-05-26] MEDS: SERTRALINE HCL 50 MG TAB PO SCH (21:48)
[2017-05-27 08:33] VITALS: RESP 20
--- NOTE | 2017-05-27 08:57 | SOAPPROG ---
SOAP Progress Note Assessment/Plan: Assessment/Plan: POD # 7 s/p laparoscopic right component separation, open adhesiolysis with small bowel resection and ventral hernia repair with 20X25 Symbotex dual sided mesh. Complete loss of abdominal domain and was unable to reapproximate fascia despite component separation Asthma History colon cancer COPD Hypothyroidism History of PE History of renal failure Morbid Obesity Appreciate IM input and care. Doing well. D/c drains. Home PT and O2. Neuro - oral pain medications Resp - Appreciate hospitalists managing asthma and COPD. CTA without PE Cardiac - stable GI - Gas and Stool. diet advanced. tolerating well. Heme/ID - Invanz completed. Bowel resection at surgery with permanent mesh. Proph - Protonix and Lovenox until d/c Endo - Hospitalists to manage hypothyroidism Dispo - Home if cleared by medicine. See above. S: Pain controlled. Walking with PT who says he is doing very well. Passing gas , +BM. No N/V. O: Sitting bedside then up with walker. alert, oriented, nad ctab rrr abd soft, obese, inc cdi with lj Jps scant serosanguinous ostomy bag just changed, per pt, +soft stool 05/27/17 08:54 Objective: Vital Signs Temp Pulse Resp BP Pulse Ox 36.5 C 76 20 117/74 95 05/27/17 08:00 05/27/17 08:00 05/27/17 08:00 05/27/17 08:00 05/27/17 08:00 Laboratory Results 05/26/17 04:31 05/26/17 04:31 05/26/17 05/27/17 05/28/17 05:59 05:59 05:59 Output Total 1340 680 Balance -1340 -680 PT 15.0 SEC (12.0-15.0) 05/20/17 05:37 INR 1.18 (0.83-1.16) H 05/20/17 05:37 ICD10 Worksheet Patient Problems: Problems Problem Status Onset S/P small bowel resection Acute Ventral incisional hernia without obstruction or gangrene Acute
[2017-05-27] MEDS ORDERED: Phentermine Hcl [Adipex-P] 37.5 MG PO SCH (09:00)
[2017-05-27] MEDS ORDERED: Mirabegron [Myrbetriq] 25 MG PO SCH (09:00)
--- NOTE | 2017-05-27 09:24 | HOSPPROG ---
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 supervisor carding for HSP/ COPD, f/u PCP for LAD calcification Subjective: breathing feels normal, but has some inspiratory pain Objective: Vital Signs Temp Pulse Resp BP Pulse Ox 36.5 C 76 20 117/74 95 05/27/17 08:00 05/27/17 08:00 05/27/17 08:00 05/27/17 08:00 05/27/17 08:00 Laboratory Results 05/26/17 04:31 05/26/17 04:31 05/26/17 05/27/17 05/28/17 05:59 05:59 05:59 Output Total 1340 680 Balance -1340 -680 PT 15.0 SEC (12.0-15.0) 05/20/17 05:37 INR 1.18 (0.83-1.16) H 05/20/17 05:37 chart reviewed CXR personally reviewed CTA reviewed - Physical Exam Constitutional: obese Cardiovascular: regular rate and rhythym, no murmur, rub, or gallop Respiratory: no respiratory distress, inspiratory crackles (bilat bases), No expiratory wheeze, No dullness to percussion, No rhonchi Gastrointestinal: soft, non-tender abdomen, other (ostomy, incision CDI, FLO drains) ICD10 Worksheet Patient Problems: Problems Problem Status Onset S/P small bowel resection Acute Ventral incisional hernia without obstruction or gangrene Acute
[2017-05-27] MEDS: FLUTICASONE/SALMETER 250/50MCG DISKUS IH SCH (09:34)
[2017-05-27] MEDS: LEVOTHYROXINE 50 MCG TAB PO SCH (10:05)
[2017-05-27] MEDS: HYDROCODONE/APAP 10/325 TAB PO PRN ×2 (10:05→14:40)
[2017-05-27] MEDS: SENNOSIDES/DOCUSATE SODIUM TAB PO SCH (10:06)
[2017-05-27] MEDS: CYCLOBENZAPRINE 10 MG TAB PO SCH (10:06)
[2017-05-27] MEDS: ENOXAPARIN 40 MG/0.4 ML SYR SC SCH (10:06)
--- NOTE | 2017-05-27 10:42 | PDIAF ---
- Diagnosis Diagnosis: s/p ventral hernia repair, COPD, obesity Code Status: Full Code - Medication Management Discharge Medications: Medications to Continue on Transfer Albuterol [Proventil Inhaler HFA (*)] 1 - 2 puffs IH DAILY PRN 05/09/17 [Last Taken 05/19/17 04:45] Cyclobenzaprine [Flexeril 10 MG (*)] 10 mg PO BID 05/09/17 [Last Taken 05/18/17 23:30] Diphenoxylate HCl/Atrop Sulf [Lomotil Tab (*)] 1 tab PO BID PRN 05/09/17 [Last Taken 05/18/17] Fluticasone/Salmeter 250/50Mcg [Advair 250/50 (*)] 1 puffs IH DAILY 05/09/17 [ Last Taken 05/19/17 04:45] Levothyroxine [Synthroid 50 mcg (*)] 50 mcg PO DAILY06 05/09/17 [Last Taken 04/29 09:30] Mirabegron [Myrbetriq] 25 mg PO DAILY 05/09/17 [Last Taken 05/18/17 23:00] Phentermine HCl [Adipex-P] 37.5 mg PO DAILY 05/09/17 [Last Taken 05/18/17 09:30] Sertraline HCl [Zoloft 50mg (*)] 50 mg PO HS 05/09/17 [Last Taken 05/18/17 23:00 ] Zolpidem Tartrate [Ambien 10 mg] 10 mg PO HS 05/09/17 [Last Taken 05/18/17 23:00 ] HYDROcodone/APAP 10/325 [Maxie 10/325 (*)] 1 tab PO Q6HRS PRN #30 tab 05/27/17 [ Last Taken Unknown] Discharge Medications: Refer to the Discharge Home Medication list for PRN reason. PICC Care - Routine: N/A - Orders Services needed: Physical Therapy Diet Recommendation: no restrictions on diet Diet Texture: Regular Texture Diet Wound Care Instructions: Leave lj in place--to be removed in office. You will need to change dressings at your drain sites with gauze or band aids until healed. Activity/Weight Bearing Restrictions: No lifting greater than 15 lbs. - Follow Up Care Current Providers and Referrals: Sharon Elizabeth MD [Medical Doctor] - follow up in 1 week Anca Nascimento NP [Primary Care Provider] -
[2017-05-27 11:55] VITALS: O2SAT 92
[2017-05-27 12:39] VITALS: BP 103/80; PULSE 83; TEMP 98.4
== END 2017-05-27 15:00 | disposition home health service (06) | DRG 330 ==
LOC: F3E 06:00 → OBSVTOIN 13:37 → F2N 14:50 → F3E 05-20 13:53
PROVIDERS: ADMIT Surgery; ATTEND Surgery
PROC: 0DT80ZZ Resection of Small Intestine, Open Approach (ICD-10-PCS; principal; 2017-05-19 07:30)
PROC: 0DNE0ZZ Release Large Intestine, Open Approach (ICD-10-PCS; principal; 2017-05-19 07:30)
PROC: 0WJG4ZZ Inspection of Peritoneal Cavity, Percutaneous Endoscopic Approach (ICD-10-PCS; principal; 2017-05-19 07:30)
PROC: 0WUF0JZ Supplement Abdominal Wall with Synthetic Substitute, Open Approach (ICD-10-PCS; principal; 2017-05-19 07:30)
DX: K43.0 Incisional hernia with obstruction, without gangrene (principal); K66.0 Peritoneal adhesions (postprocedural) (postinfection); K91.72 Accidental puncture and laceration of a digestive system organ or structure during other procedure; D62 Acute posthemorrhagic anemia; Z85.038 Personal history of other malignant neoplasm of large intestine; K94.09 Other complications of colostomy; E66.01 Morbid (severe) obesity due to excess calories; Z68.39 Body mass index [BMI] 39.0-39.9, adult; J44.9 Chronic obstructive pulmonary disease, unspecified; G89.29 Other chronic pain; F11.20 Opioid dependence, uncomplicated; E03.9 Hypothyroidism, unspecified; F32.9 Major depressive disorder, single episode, unspecified; Z86.711 Personal history of pulmonary embolism; Z98.1 Arthrodesis status
CPT/HCPCS: 97116-GP; 97161-GP; 97165-GO; 97530-GO; 97530-GP; 97535-GO; C1727; C1781; G8978-GP-CI; G8978-GP-CK; G8979-GP-CI; G8980-GP-CI; G8987-GO-CK; G8988-GO-CI; G8989-GO-CI; J0690; J1100; J1170; J1335; J1650; J1885; J2250; J2270; J2370; J2405; J2704; J3010; Q9967

== ENCOUNTER 2017-07-29 06:34 | Inpatient (IN) | payer OTHER, MEDICAID ==
[2017-07-29] MEDS ORDERED: HYDROmorphONE/DILAUDID 1 MG/ML INJ IVP ONE ×2 (06:58→09:09)
[2017-07-29] MEDS ORDERED: ONDANSETRON 4 MG/2 ML VIAL IVP ONE (06:58)
--- NOTE | 2017-07-29 07:02 | EDPHY ---
H & P Time Seen by Provider: 07/29/17 06:49 HPI/ROS: CHIEF COMPLAINT: Abdominal pain HISTORY OF PRESENT ILLNESS: This 61-year-old man had abdominal surgery on May 19 of this year by Dr. Elizabeth for incarcerated ventral hernia repair, with a history of previous resection for sigmoid colon cancer. He presents today with 3-4 days of worsening left upper abdominal pain which is increasing over the past 48 hours and severe this morning. It does not radiate and was associated with some diarrhea yesterday evening. It is worse with oral intake. Describes it as severe today and not helped by his 10 mg hydrocodone tablets at home of which he took 3 after midnight. REVIEW OF SYSTEMS: Eye: no change in vision ENT: no sore throat Cardiac: no chest pain or syncope Pulmonary: no cough or SOB Abdomen: HPI, stable ostomy output Musculoskeletal: no back pain Skin: no rash Neuro: no headache Constitutional: no fever : no urinary symptoms A comprehensive 10 point review of systems is otherwise negative aside from elements mentioned in the history of present illness. PAST MEDICAL HISTORY: Includes right total knee arthroplasty, abdominal surgery as above, COPD with chronic pneumonitis, cervical spine fusion, pulmonary embolism. Social history: , here with his General Appearance: Alert and conversant, cooperative. Eyes: No scleral icterus. ENT, Mouth: Normal mucous membranes. Respiratory: Normal respiratory effort, breath sounds equal, lungs are clear to auscultation. Cardiovascular: Regular rate and rhythm. Gastrointestinal: Left upper and mid abdominal tenderness without rebound or guarding. Incision looks clean dry and intact. Right-sided ostomy present. Neurological: Alert and oriented x3. Normally conversant. Face symmetric, normal movement and sensation in all extremities. Skin: Warm and dry, no rashes. Musculoskeletal: No peripheral edema and no joint swelling. Psychiatric: Not agitated. Emergency Department course/MDM: Patient requesting additional pain medication, 0.5 mg IV Dilaudid and 4 mg IV Zofran. NS 1000ml, Plan for chemistry panel to check creatinine followed by abdominal pelvis CT scanning with IV contrast. 724: Creatinine resulted at 1.1, CT scanning discussed and consented. 822: CT scan personally interpreted shows small bowel obstruction with air- fluid levels and dilatation. Call is placed to the patient's surgeon Dr. Elizabeth. Reviewed with Radha at 825am, SBO with additionally pre-peritoneal fluid collection seen. 827: Dr. Elizabeth, will consult. 830: Patrizia for Dr. Becerra accepts admission. Reason for transfer [facility] for inpatient hospital bed not available at [facility] discussed and consented. I think the patient is stable to go by private vehicle which is his request. 900: Additional 0.5mg IV dilaudid, no peritoneal signs, it seems reasonable to defer nasogastric tube placement at this time until after transfer since they want to go by private vehicle. Smoking Status: Never smoked Constitutional: Initial Vital Signs Temperature (C) 36.6 C 07/29/17 06:41 Heart Rate 86 07/29/17 06:41 Respiratory Rate 18 07/29/17 06:41 Blood Pressure 134/98 H 07/29/17 06:41 O2 Sat (%) 94 07/29/17 06:41 O2 Delivery Mode Room Air Allergies/Adverse Reactions: baclofen Allergy (Severe, Verified 07/29/17 06:47) Swelling/neck,face,throat Home Medications: Medication Instructions Recorded Albuterol [Proventil Inhaler HFA 1 - 2 puffs IH DAILY PRN 05/09/17 (*)] Cyclobenzaprine [Flexeril 10 MG 10 mg PO BID 05/09/17 (*)] Diphenoxylate HCl/Atrop Sulf 1 tab PO BID PRN 05/09/17 [Lomotil Tab (*)] Fluticasone/Salmeter 250/50Mcg 1 puffs IH DAILY 05/09/17 [Advair 250/50 (*)] Levothyroxine [Synthroid 50 mcg 50 mcg PO DAILY06 05/09/17 (*)] Mirabegron [Myrbetriq] 25 mg PO DAILY 05/09/17 Phentermine HCl [Adipex-P] 37.5 mg PO DAILY 05/09/17 Sertraline HCl [Zoloft 50mg (*)] 50 mg PO HS 05/09/17 Zolpidem Tartrate [Ambien 10 mg] 10 mg PO HS 05/09/17 HYDROcodone/APAP 10/325 [[place] 1 tab PO Q6HRS PRN #30 tab 05/27/17 10/325 (*)] Medical Decision Making - Diagnostics EKG Interpretation: 12-lead EKG interpreted by me; official reading is in trace master. My interpretation is sinus rhythm rate 69 no ischemic changes. Imaging Results: Imaging Impressions Abdomen CT 07/29/17 07:23 Impression: 1. High-grade small bowel obstruction which appears in the mid aspect, left mid abdomen transition point. 2. No pneumoperitoneum. 3. Large midline incisional subcutaneous fluid collection measuring 15 x 7 x 13 cm which may represent postsurgical hematoma or seroma, although abscess cannot be excluded. 4. Smaller left anterior deep subcutaneous fluid collection measuring 5 x 3 cm. 5. Para-ostomy hernia with colon extending into the subcutaneous soft tissues. 6. No definite intraabdominal abscess or fluid collection. 7. No significant adenopathy or definite hepatic metastasis. 8. Please see above findings. Findings and recommendations discussed with Emergency Department physician, Sal Silva, at 0830 hours on July 29, 2017. Final report concurs with initial preliminary interpretation. Findings and recommendations discussed with surgeon, Dr. Sharon Elizabeth, at 0830 hours on July 29, 2017. Differential Diagnosis: Differential considered including but not limited to postoperative abscess, intestinal perforation, bowel obstruction, gastroenteritis, colitis. - Data Points Laboratory Results: Laboratory Results 07/29/17 07:00 07/29/17 07:00 07/29/17 07/29/17 07:00 07:00 WBC 10.88 10^3/uL H 10^3/uL (3.80-9.50) RBC 4.77 10^6/uL 10^6/uL (4.40-6.38) Hgb 12.2 g/dL L g/dL (13.7-17.5) Hct 40.1 % % (40.0-51.0) MCV 84.1 fL fL (81.5-99.8) MCH 25.6 pg L pg (27.9-34.1) MCHC 30.4 g/dL L g/dL (32.4-36.7) RDW 14.7 % % (11.5-15.2) Plt Count 321 10^3/uL 10^3/uL (150-400) MPV 9.8 fL fL (8.7-11.7) Neut % (Auto) 78.0 % H % (39.3-74.2) Lymph % (Auto) 13.5 % L % (15.0-45.0) [place] % (Auto) 6.3 % % (4.5-13.0) Eos % (Auto) 1.7 % % (0.6-7.6) Baso % (Auto) 0.3 % % (0.3-1.7) Nucleat RBC Rel Count 0.0 % % (0.0-0.2) Absolute Neuts (auto) 8.50 10^3/uL H 10^3/uL (1.70-6.50) Absolute Lymphs (auto) 1.47 10^3/uL 10^3/uL (1.00-3.00) Absolute Monos (auto) 0.68 10^3/uL 10^3/uL (0.30-0.80) Absolute Eos (auto) 0.18 10^3/uL 10^3/uL (0.03-0.40) Absolute Basos (auto) 0.03 10^3/uL 10^3/uL (0.02-0.10) Absolute Nucleated RBC 0.00 10^3/uL 10^3/uL (0-0.01) Immature Gran % 0.2 % % (0.0-1.1) Immature Gran # 0.02 10^3/uL 10^3/uL (0.00-0.10) Sodium 142 mEq/L mEq/L (134-144) Potassium 4.1 mEq/L mEq/L (3.5-5.2) Chloride 103 mEq/L mEq/L (97-110) Carbon Dioxide 26 mEq/l mEq/l (22-31) Anion Gap 13 mEq/L mEq/L (8-16) BUN 21 mg/dL mg/dL (7-23) Creatinine 1.1 mg/dL mg/dL (0.7-1.3) Estimated GFR > 60 Glucose 120 mg/dL H mg/dL (70-100) Calcium 9.5 mg/dL mg/dL (8.5-10.4) Total Bilirubin 0.7 mg/dL mg/dL (0.1-1.4) Conjugated Bilirubin 0.5 mg/dL mg/dL (0.0-0.5) Unconjugated Bilirubin 0.2 mg/dL mg/dL (0.0-1.1) AST 18 IU/L IU/L (17-59) ALT 27 IU/L IU/L (21-72) Alkaline Phosphatase 79 IU/L IU/L (38-126) Total Protein 8.1 g/dL g/dL (6.3-8.2) Albumin 4.0 g/dL g/dL (3.5-5.0) Lipase 27 IU/L IU/L (23-300) Medications Given: Discontinued Medications Hydromorphone HCl (Dilaudid) 0.5 mg IVP EDNOW ONE Stop: 07/29/17 06:59 Last Admin: 07/29/17 07:10 Dose: 0.5 mg Hydromorphone HCl (Dilaudid) 0.5 mg IVP EDNOW ONE Stop: 07/29/17 09:10 Last Admin: 07/29/17 09:16 Dose: 0.5 mg Ondansetron HCl (Zofran) 4 mg IVP EDNOW ONE Stop: 07/29/17 06:59 Last Admin: 07/29/17 07:09 Dose: 4 mg Departure - Departure Disposition: [facility] Inpatient Acute Clinical Impression: Bowel obstruction Qualifiers: Intestinal obstruction type: unspecified Qualified Code(s): K56.60 - Unspecified intestinal obstruction Condition: Good
[2017-07-29 07:07] LABS: % IMMATURE GRANULYOCYTES 0.2 % (0.0-1.1); ABSOLUTE IMMATURE GRANULOCYTES 0.02 10^3/uL (0.00-0.10); ADD DIFF? NO; ADD MORPH? NO; ADD SCAN? NO; ATYPICAL LYMPHOCYTE FLAG 0 (0-99); FRAGMENT RBC FLAG 0 (0-99); HEMATOCRIT 40.1 % (40.0-51.0); HEMOGLOBIN 12.2 g/dL (13.7-17.5); LEFT SHIFT FLG 0 (0-99); LIPEMIA HEMOLYSIS FLAG 80 (0-99); MEAN CELL HEMOGLOBIN 25.6 pg (27.9-34.1); MEAN CELL HEMOGLOBIN CONCENTR. 30.4 g/dL (32.4-36.7); MEAN CELL VOLUME 84.1 fL (81.5-99.8); MEAN PLATELET VOLUME 9.8 fL (8.7-11.7); PLATELET CLUMPS FLAG 10 (0-99); PLATELET COUNT 321 10^3/uL (150-400); RED BLOOD CELL COUNT 4.77 10^6/uL (4.40-6.38); RED CELL DISTRIBUTION WIDTH 14.7 % (11.5-15.2)
[2017-07-29 07:22] LABS: ALANINE AMINOTRANSFERASE 27 IU/L (21-72); ALKALINE PHOSPHATASE 79 IU/L (38-126); ANION GAP 13 mEq/L (8-16); ASPARTATE AMINOTRANSFERASE 18 IU/L (17-59); BILIRUBIN,TOTAL 0.7 mg/dL (0.1-1.4); BILIRUBIN-CONJUGATED 0.5 mg/dL (0.0-0.5); BILIRUBIN-UNCONJUGATED 0.2 mg/dL (0.0-1.1); CALCIUM 9.5 mg/dL (8.5-10.4); CARBON DIOXIDE 26 mEq/l (22-31); CHLORIDE 103 mEq/L (97-110); CREATININE 1.1 mg/dL (0.7-1.3); GLOMERULAR FILTRATION RATE > 60; GLUCOSE 120 mg/dL (70-100); POTASSIUM 4.1 mEq/L (3.5-5.2); SODIUM 142 mEq/L (134-144); TOTAL PROTEIN 8.1 g/dL (6.3-8.2)
--- NOTE | 2017-07-29 07:24 | CPEKG ---
Heart Rate: 69 RR Interval: 870 P-R Interval: 192 QRSD Interval: 104 QT Interval: 396 QTC Interval: 425 P [place]: 76 QRS [place]: 64 T Wave [place]: 53 EKG Severity - NORMAL ECG - EKG Impression: SINUS RHYTHM Electronically Signed By: Sal Silva 29-Jul-2017 07:24:59
[2017-07-29] MEDS ORDERED: IOPAMIDOL (ISOVUE-300) 100 ML BTL ONE (07:40)
[2017-07-29] MEDS ORDERED: NS 1,000 ML IV ONE (09:51)
[2017-07-29] MEDS ORDERED: PROMETHAZINE HCL 25 MG/ML INJ IVP PRN (11:27)
[2017-07-29] MEDS ORDERED: ACETAMINOPHEN 325 MG TAB PO PRN (11:27)
[2017-07-29] MEDS ORDERED: PROMETHAZINE HCL 25 MG TAB PO PRN (11:27)
[2017-07-29] MEDS ORDERED: LORazepam 2 MG/ML INJ IVP PRN (11:27)
[2017-07-29] MEDS ORDERED: ONDANSETRON DISINTEGRATING 4 MG TAB PO PRN (11:27)
[2017-07-29] MEDS ORDERED: METOCLOPRAMIDE 10 MG TAB PO PRN (11:27)
[2017-07-29] MEDS ORDERED: METOCLOPRAMIDE 10 MG/2 ML VIAL IVP PRN (11:27)
[2017-07-29] MEDS ORDERED: ONDANSETRON 4 MG/2 ML VIAL IVP PRN (11:27)
[2017-07-29] MEDS: HYDROmorphONE/DILAUDID 1 MG/ML INJ IVP PRN ×2 (12:18→18:50)
[2017-07-29] MEDS: NS 1,000 ML IV SCH (12:25)
--- NOTE | 2017-07-29 13:48 | GCON ---
[f rep st] CONSULTATION DATE OF CONSULTATION: 07/29/2017 REQUESTING PHYSICIAN: Dr. Wu Becerra. CHIEF COMPLAINT: Small bowel obstruction. HISTORY OF PRESENT ILLNESS: The patient is a 61-year-old man, who I took to the operating room on 2016. He has a history of sigmoid colon cancer and had a sigmoid colectomy in December 2012, i [facility], with an ostomy placed. He had some mucocutaneous separation, and was advised to get a ty pe of bariatric surgery prior to reversal, however, he had a very symptomatic painful hernia. I took him to the operating room on May 19, 2017, for a left laparoscopic component separation and an open ventral hernia repair. He essentially had complete loss of abdominal domain, and I placed a piece of Symbotex mesh, which measured 20 x 25, in his abdomen. I have been following him in the office and he has been doing quite well. Over the past 3 days, he has had increased nausea and pain in his left upper quadrant. At 2 a.m. his pain escalated, and he ultimately went into urgent care this morning. He had a CT scan, which I personally reviewed, that shows a large subcutaneous midline fluid collec tion, a smaller fluid collection on the left side of the abdomen and small bowel obstruction. The ar ea where I did a small bowel anastomosis looks intact. There is a small parastomal hernia, but this does not appear to be the area of concern. He also has an area inferiorly, which could be a small lo op of bowel that is by the mesh, however, it is the same caliber on either side. He does have an are a where it is smaller proximally. The transition point is in the left lower quadrant. The patient i s currently having pain in the left upper quadrant and some nausea, but no vomiting. He is still hav ing gas and diarrhea through his ostomy. PAST MEDICAL HISTORY: Is significant for asthma, chronic back pain, colon cancer, COPD, hypothyroidi sm, obesity, history of pulmonary embolism, and history of renal failure. PAST SURGICAL HISTORY: Includes cervical fusion, knee surgery, partial colectomy, total knee replace ment, hernia repair. ALLERGIES: Baclofen. MEDICATION LIST: Will be reconciled by the pharmacist. FAMILY HISTORY: Significant for coronary artery disease, stroke, emphysema and hypertension. SOCIAL HISTORY: He does not use alcohol or tobacco products. He is , his anniversary is mary rr. REVIEW OF SYSTEMS: Significant for some shortness of breath, otherwise, a 10-point review of systems negative, except per HPI. PHYSICAL EXAMINATION: VITAL SIGNS: 37.2, 74, 119/69, 12, 92% on room air. GENERAL: A pleasant, we ll-groomed man, actually appears quite well, with at bedside. He is sitting in the chair. HEEN T: Normocephalic. No gross hearing deficits. Mucous membranes moist. Pupils equal and round. No scleral icterus. LUNGS: Clear to auscultation bilaterally. No increased work of breathing. CARDIAC: Regular rate. ABDOMEN: His bowel sounds are present. He does have gas and stool in his o paque ostomy appliance. His midline incision is well healed. He does have a tender mass in the left upper quadrant. He has no rebound tenderness. I paid particular attention palpating near the infer ior aspect under his pannus, and he did not have any pain at this point either. MUSCULOSKELETAL: Normal nails. NEURO: Grossly intact. PSYCH: Mood and affect normal. RESULTS REVIEWED: I personally reviewed the results of his CT scan. I also reviewed his laboratory work. IMPRESSION AND PLAN: The patient is a 61-year-old man with left upper quadrant abdominal pain, nause a. He clinically does not have a bowel obstruction, as he is passing gas and diarrhea. It is possib le this has not been complete, and it is also possible he could have some type of enteritis that is c ausing a similar finding on CT. At this point in time, I recommend n.p.o. and IV fluids. We will wa tch him carefully. If his pain escalates, we may certainly need to go to the OR, especially to explo re the area in the left upper quadrant. I discussed the case with Dr. Becerra. I will continue to fo raimundo. /[id number]/MODL
--- NOTE | 2017-07-29 18:39 | PDGENHP ---
History and Physical - Chief Complaint acute abdominal pain - History of Present Illness primary surgeon: Dr. Sharon Elizabeth HPI: 61-year-old male presents with acute abdominal pain characterized as severe, located in the left upper quadrant, of 3-4 days duration, onset sudden with escalation over the past 48 hours. Associated with loose stool through his ostomy bag. Exacerbated by flexion at the waist as well as with oral intake. Somewhat alleviated with pain medication received in Urgent care. He has otherwise been taking all of his home medications, and reports no injuries to the affected area. He attempted to manage the pain with hydrocodone at home , and was unsuccessful. History Information - Allergies/Home Medication List Allergies/Adverse Reactions: baclofen Allergy (Severe, Verified 07/29/17 06:47) Swelling/neck,face,throat Home Medications: Albuterol [Proventil Inhaler HFA (*)] 1 - 2 puffs IH DAILY PRN 05/09/17 [Last Taken 05/19/17 04:45] Cyclobenzaprine [Flexeril 10 MG (*)] 10 mg PO BID 05/09/17 [Last Taken 07/28/17] Diphenoxylate HCl/Atrop Sulf [Lomotil Tab (*)] 1 tab PO DAILY PRN 05/09/17 [ Last Taken 07/26/17] Fluticasone/Salmeter 250/50Mcg [Advair 250/50 (*)] 1 puffs IH DAILY 05/09/17 [ Last Taken 07/28/17] Levothyroxine [Synthroid 50 mcg (*)] 50 mcg PO DAILY06 05/09/17 [Last Taken ] Mirabegron [Myrbetriq] 25 mg PO HS 05/09/17 [Last Taken 07/28/17] Phentermine HCl [Adipex-P] 37.5 mg PO DAILY 05/09/17 [Last Taken 07/28/17] Sertraline HCl [Zoloft 50mg (*)] 50 mg PO HS 05/09/17 [Last Taken 07/28/17] Zolpidem Tartrate [Ambien 10 mg] 10 mg PO HS 05/09/17 [Last Taken 07/28/17] I have personally reviewed and updated: family history, medical history, social history, surgical history - Past Medical History Additional medical history: Sigmoid colon cancer. Pneumonitis/ COPD. History of pulmonary embolism provoked by surgery. Hypothyroidism. Morbid obesity. Depression - Surgical History Additional surgical history: 05/19/2017 incarcerated hernia repair by Dr. Sharon Elizabeth, requiring extensive mesh placement. Partial colectomy with ostomy. Cervical fusion - Family History Additional family history: no family history of venous thromboembolism - Social History Smoking Status: Never smoked Alcohol Use: None Drug Use: None Additional social history: independent in his ADLs Review of Systems Review of Systems: ROS: 10pt was reviewed & negative except for what was stated in HPI & below Gastrointestinal: Reports: abdominal pain, diarrhea Physical Exam Physical Exam: Temp Pulse Resp BP Pulse Ox 36.5 C 56 L 20 96/60 L 93 07/29/17 15:37 07/29/17 15:37 07/29/17 15:37 07/29/17 15:37 07/29/17 15:37 Constitutional: no apparent distress, obese, uncomfortable, No chronically ill appearing Eyes: PERRL, anicteric sclera, EOMI Ears, Nose, Mouth, Throat: moist mucous membranes, hearing normal, ears appear normal, no oral mucosal ulcers Cardiovascular: regular rate and rhythym, no murmur, rub, or gallop, No irregularly irregular, No tachycardia, No edema Respiratory: no respiratory distress, no rales or rhonchi, clear to auscultation Gastrointestinal: normoactive bowel sounds, tenderness ( left upper quadrant), distension ( morbidly distended), other ( ostomy bag in right side), No guarding Skin: other ( surgical areas are well healing, very minimal discoloration, no erythema or rashes) Neurologic: AAOx3, sensation intact bilaterally, No weakness Psychiatric: interacting appropriately, not anxious, not encephalopathic, thought process linear Lab Data & Imaging Review 07/29/17 07:00 07/29/17 07:00 WBC 10.88 10^3/uL (3.80-9.50) H 07/29/17 07:00 RBC 4.77 10^6/uL (4.40-6.38) 07/29/17 07:00 Hgb 12.2 g/dL (13.7-17.5) L 07/29/17 07:00 Hct 40.1 % (40.0-51.0) 07/29/17 07:00 MCV 84.1 fL (81.5-99.8) 07/29/17 07:00 MCH 25.6 pg (27.9-34.1) L 07/29/17 07:00 MCHC 30.4 g/dL (32.4-36.7) L 07/29/17 07:00 RDW 14.7 % (11.5-15.2) 07/29/17 07:00 Plt Count 321 10^3/uL (150-400) 07/29/17 07:00 MPV 9.8 fL (8.7-11.7) 07/29/17 07:00 Neut % (Auto) 78.0 % (39.3-74.2) H 07/29/17 07:00 Lymph % (Auto) 13.5 % (15.0-45.0) L 07/29/17 07:00 [place] % (Auto) 6.3 % (4.5-13.0) 07/29/17 07:00 Eos % (Auto) 1.7 % (0.6-7.6) 07/29/17 07:00 Baso % (Auto) 0.3 % (0.3-1.7) 07/29/17 07:00 Nucleat RBC Rel Count 0.0 % (0.0-0.2) 07/29/17 07:00 Absolute Neuts (auto) 8.50 10^3/uL (1.70-6.50) H 07/29/17 07:00 Absolute Lymphs (auto) 1.47 10^3/uL (1.00-3.00) 07/29/17 07:00 Absolute Monos (auto) 0.68 10^3/uL (0.30-0.80) 07/29/17 07:00 Absolute Eos (auto) 0.18 10^3/uL (0.03-0.40) 07/29/17 07:00 Absolute Basos (auto) 0.03 10^3/uL (0.02-0.10) 07/29/17 07:00 Absolute Nucleated RBC 0.00 10^3/uL (0-0.01) 07/29/17 07:00 Immature Gran % 0.2 % (0.0-1.1) 07/29/17 07:00 Immature Gran # 0.02 10^3/uL (0.00-0.10) 07/29/17 07:00 Sodium 142 mEq/L (134-144) 07/29/17 07:00 Potassium 4.1 mEq/L (3.5-5.2) 07/29/17 07:00 Chloride 103 mEq/L (97-110) 07/29/17 07:00 Carbon Dioxide 26 mEq/l (22-31) 07/29/17 07:00 Anion Gap 13 mEq/L (8-16) 07/29/17 07:00 BUN 21 mg/dL (7-23) 07/29/17 07:00 Creatinine 1.1 mg/dL (0.7-1.3) 07/29/17 07:00 Estimated GFR > 60 07/29/17 07:00 Glucose 120 mg/dL (70-100) H 07/29/17 07:00 Calcium 9.5 mg/dL (8.5-10.4) 07/29/17 07:00 Total Bilirubin 0.7 mg/dL (0.1-1.4) 07/29/17 07:00 Conjugated Bilirubin 0.5 mg/dL (0.0-0.5) 07/29/17 07:00 Unconjugated Bilirubin 0.2 mg/dL (0.0-1.1) 07/29/17 07:00 AST 18 IU/L (17-59) 07/29/17 07:00 ALT 27 IU/L (21-72) 07/29/17 07:00 Alkaline Phosphatase 79 IU/L (38-126) 07/29/17 07:00 Total Protein 8.1 g/dL (6.3-8.2) 07/29/17 07:00 Albumin 4.0 g/dL (3.5-5.0) 07/29/17 07:00 Lipase 27 IU/L (23-300) 07/29/17 07:00 Visualized and Interpreted EKG results: Yes EKG Interpretation: Positive for: other ( normal sinus rhythm) Assessment & Plan Assessment: 61-year-old male presenting with acute abdominal pain and possible small bowel obstruction Plan: 1. Abdominal pain. Acute, new problem this provider, further workup indicated. Possible etiologies include small-bowel obstruction versus viral gastroenteritis versus postsurgical fluid collection -discussed with Dr. Sharon Elizabeth, we both agree that the presentation is somewhat unusual in so far as the CT of his abdomen demonstrates fluid collections along the right side but his primary symptoms are specifically in the left upper quadrant -the CT does show possible small bowel obstruction in the mid left abdomen, which would correspond to his symptoms -that being said, the patient has continued to move his bowels with liquid material in his ostomy bag, but his normal ostomy output is more peanut butter consistency and this liquid output may be moving around obstructed area -will keep him NPO with sips and chips, IV pain medication for symptom management, IV fluids for supportive care -will send a stool PCR to evaluate for any infectious organisms -appreciate the ongoing surgical consultation by Dr. Sharon Elizabeth 2. Hernia. Patient with recent incarcerated ventral hernia repair, reviewed outside records including 05/27/17 progress note by Natalie Barahona, summarizing patient's laparoscopic right-sided complete separation with open adhesiolysis and small-bowel resection with similar attacks mesh implanted -the patient has ongoing hernia on CT imaging, but does not have incarceration on this presentation 3. History of pulmonary embolism. Remote comma provoked, 05/25/2017 CT angiograms demonstrating no evidence of pulmonary embolism during recent hospitalization -regular DVT prophylaxis is appropriate once we establish surgical intervention not indicated 4. Morbid obesity. Increase patient's risk of worsening morbidity and/or mortality, secondary to difficult wound healing for situations outlined above Diet. NPO with sips and chips Prophylaxis. High risk patient, SCDs, pharm contraindicated in the setting of possible surgery Code. Full per patient, his is MPOA Disposition. Anticipated discharge uncertain this time, anticipated length stay is greater than 48 hours warranting inpatient admission status for reasonable medical necessity including acute small bowel obstruction resulting in acute abdominal pain requiring further workup as outlined above.
[2017-07-29] MEDS ORDERED: ALBUTEROL 60 PUFFS/8 GM MDI IH PRN (18:58)
[2017-07-29] MEDS: CYCLOBENZAPRINE 10 MG TAB PO SCH (21:24)
[2017-07-29] MEDS: ZOLPIDEM TARTRATE 5 MG TAB PO SCH (21:25)
[2017-07-29] MEDS: SERTRALINE HCL 50 MG TAB PO SCH (21:25)
[2017-07-29] MEDS: Mirabegron [Myrbetriq] 25 MG PO SCH (21:27)
[2017-07-30] MEDS: NS 1,000 ML IV SCH (01:55)
[2017-07-30 05:27] LABS: % IMMATURE GRANULYOCYTES 0.1 % (0.0-1.1); ABSOLUTE IMMATURE GRANULOCYTES 0.01 10^3/uL (0.00-0.10); ADD DIFF? NO; ADD MORPH? NO; ADD SCAN? NO; ATYPICAL LYMPHOCYTE FLAG 20 (0-99); FRAGMENT RBC FLAG 0 (0-99); HEMOGLOBIN 10.2 g/dL (13.7-17.5); LEFT SHIFT FLG 0 (0-99); LIPEMIA HEMOLYSIS FLAG 70 (0-99); MEAN CELL HEMOGLOBIN 25.6 pg (27.9-34.1); MEAN CELL HEMOGLOBIN CONCENTR. 29.1 g/dL (32.4-36.7); MEAN CELL VOLUME 87.7 fL (81.5-99.8); PLATELET CLUMPS FLAG 20 (0-99); PLATELET COUNT 254 10^3/uL (150-400); RED BLOOD CELL COUNT 3.99 10^6/uL (4.40-6.38); RED CELL DISTRIBUTION WIDTH 14.8 % (11.5-15.2)
[2017-07-30] MEDS: LEVOTHYROXINE 50 MCG TAB PO SCH (05:56)
[2017-07-30 06:18] LABS: ANION GAP 9 mEq/L (8-16); CALCIUM 8.5 mg/dL (8.5-10.4); CARBON DIOXIDE 25 mEq/l (22-31); CHLORIDE 106 mEq/L (97-110); CREATININE 1.1 mg/dL (0.7-1.3); GLOMERULAR FILTRATION RATE > 60; GLUCOSE 84 mg/dL (70-100); MAGNESIUM 1.9 mg/dL (1.6-2.3); POTASSIUM 3.9 mEq/L (3.5-5.2); SODIUM 140 mEq/L (134-144)
[2017-07-30] MEDS: FLUTICASONE/SALMETER 250/50MCG DISKUS IH SCH (09:43)
[2017-07-30] MEDS: CYCLOBENZAPRINE 10 MG TAB PO SCH ×2 (10:12→20:34)
[2017-07-30] MEDS: Phentermine Hcl [Adipex-P] 37.5 MG PO SCH (10:13)
[2017-07-30] MEDS ORDERED: D5W 1/2 NS 1,000 ML IV SCH ×2 (12:00→12:15)
--- NOTE | 2017-07-30 15:40 | SOAPPROG ---
SOAP Progress Note Assessment/Plan: Assessment: 61 yo male with possible bowel obstruction and colostomy. Plan: Neuro: pain improved, per nurse no pain/nausea meds needed last night. Cardio: Stable Resp: Stable FEN: Continue IV fluids, electrolytes stable, start clear liquid diet. GI: Pt is passing gas and stool through ostomy. Abdominal x-rays show persistent dilated small bowel. Will trial clear liquid diet. Pt will trial a clear liquid diet and if this is tolerated and he produces stools/gas through his ostomy then surgery may not be indicated at this time. We will reassess after this trial. S: Pt reports his pain is much better today. He still has some left upper quadrant pain although improved from yesterday O: General: Well-developed well-nourished obese adult male sitting up in chair. HEENT: Normocephalic atraumatic, [place], no scleral icterus, no gross hearing deficit, mucous membranes moist Respiratory: No increased work of breathing Cor: No peripheral edema GI: Abdomen is soft with mild tenderness to palpation of the left upper quadrant. Patient has mild distention improved from previous exam. Bowel sounds present and normal x4. Neuro: Grossly intact Psych: Appropriate mood and affect 07/30/17 15:34 07/30/17 16:35 Objective: Vital Signs Temp Pulse Resp BP Pulse Ox 37.1 C 72 16 122/67 H 95 07/30/17 12:00 07/30/17 12:00 07/30/17 12:00 07/30/17 12:00 07/30/17 12:00 Microbiology 07/29/17 14:12 Gastrointestinal Tract Panel (PCR) - Final Stool No Organism Detected Laboratory Results 07/30/17 04:50 07/30/17 04:50 07/29/17 07/30/17 07/31/17 05:59 05:59 05:59 Intake Total 2428 Output Total 790 550 Balance 1638 -550 ICD10 Worksheet Patient Problems: Problems Problem Status Onset Bowel obstruction Acute S/P small bowel resection Acute Ventral incisional hernia without obstruction or gangrene Acute
--- NOTE | 2017-07-30 16:26 | ASMTCMCOM ---
CM Note CM Note Notes: Spoke w/PT, states pt independent. Anticipate will dc home w/support of when medically stable. CM available for any changes. Date Signed: 07/30/2017 04:25 PM Electronically Signed By:Lily Mora RN
--- NOTE | 2017-07-30 20:15 | SOAPPROG ---
SOAP Progress Note Assessment/Plan: 61-year-old male presenting with acute abdominal pain and possible small bowel obstruction Plan: 1. Abdominal pain/SBO. Acute -appreciate Dr. Alan's assistance, xray pending and possible trial liquids depending upon results as clinically improved - IV pain medication for symptom management, IV fluids for supportive care -stool PCR neg 2. Hernia. Patient with recent incarcerated ventral hernia repair, laparoscopic right-sided complete separation with open adhesiolysis and small- bowel resection mesh implanted -ongoing hernia on CT imaging, but does not have incarceration on this presentation 3. History of pulmonary embolism. Remote/provoked, 05/25/2017 CT angiograms demonstrating no evidence of pulmonary embolism during recent hospitalization -holding pharm as surgical intervention maybe indicated -ambulate teds/scds 4. Morbid obesity. Diet. NPO with sips and chips, possible clears today if OK with Dr alan Prophylaxis. High risk patient, SCDs/TEDs, pharm contraindicated in the setting of possible surgery Code. Full per patient, his is MPOA Disposition. Anticipated discharge uncertain this time, but likely > 2 mdnts Subjective: Feeling better, less pain/no pain meds. No n/v/cp/sob. Objective: Vital Signs Temp Pulse Resp BP Pulse Ox 98.8 F 67 16 114/77 92 07/30/17 20:00 07/30/17 20:00 07/30/17 20:00 07/30/17 20:00 07/30/17 20:00 Microbiology 07/29/17 14:12 Gastrointestinal Tract Panel (PCR) - Final Stool No Organism Detected Laboratory Results 07/30/17 04:50 07/30/17 04:50 07/29/17 07/30/17 07/31/17 11:59 11:59 11:59 Intake Total 1000 1428 1259 Output Total 840 950 Balance 1000 588 309 Physical Exam - Physical Exam General Appearance: WD/WN, alert, no apparent distress, obese Respiratory: chest non-tender, lungs clear, normal breath sounds Cardiac/Chest: normal peripheral pulses, regular rate, rhythm, No edema Abdomen: soft, other (+ BS, RLQ ostomy, mild TTP throughout), No distended, No guarding, No rebound Neuro/Psych: normal mood/affect, No cognition abnormalities ICD10 Worksheet Patient Problems: Problems Problem Status Onset Bowel obstruction Acute S/P small bowel resection Acute Ventral incisional hernia without obstruction or gangrene Acute
[2017-07-30] MEDS: Mirabegron [Myrbetriq] 25 MG PO SCH (20:33)
[2017-07-30] MEDS: ZOLPIDEM TARTRATE 5 MG TAB PO SCH (20:34)
[2017-07-30] MEDS: SERTRALINE HCL 50 MG TAB PO SCH (20:35)
[2017-07-31] MEDS: LEVOTHYROXINE 50 MCG TAB PO SCH (05:06)
[2017-07-31 05:31] LABS: % IMMATURE GRANULYOCYTES 0.3 % (0.0-1.1); ABSOLUTE IMMATURE GRANULOCYTES 0.02 10^3/uL (0.00-0.10); ADD DIFF? NO; ADD MORPH? NO; ADD SCAN? NO; ATYPICAL LYMPHOCYTE FLAG 10 (0-99); FRAGMENT RBC FLAG 0 (0-99); HEMATOCRIT 34.5 % (40.0-51.0); HEMOGLOBIN 10.3 g/dL (13.7-17.5); LEFT SHIFT FLG 0 (0-99); LIPEMIA HEMOLYSIS FLAG 70 (0-99); MEAN CELL HEMOGLOBIN CONCENTR. 29.9 g/dL (32.4-36.7); MEAN CELL VOLUME 87.1 fL (81.5-99.8); PLATELET CLUMPS FLAG 0 (0-99); PLATELET COUNT 256 10^3/uL (150-400); RED BLOOD CELL COUNT 3.96 10^6/uL (4.40-6.38); RED CELL DISTRIBUTION WIDTH 14.7 % (11.5-15.2)
[2017-07-31 05:41] LABS: ANION GAP 11 mEq/L (8-16); CALCIUM 8.8 mg/dL (8.5-10.4); CARBON DIOXIDE 26 mEq/l (22-31); CHLORIDE 107 mEq/L (97-110); CREATININE 1.1 mg/dL (0.7-1.3); GLOMERULAR FILTRATION RATE > 60; GLUCOSE 91 mg/dL (70-100); MAGNESIUM 1.9 mg/dL (1.6-2.3); POTASSIUM 3.9 mEq/L (3.5-5.2); SODIUM 144 mEq/L (134-144)
[2017-07-31] MEDS: FLUTICASONE/SALMETER 250/50MCG DISKUS IH SCH (08:37)
[2017-07-31 08:45] VITALS: RESP 14
[2017-07-31] MEDS: CYCLOBENZAPRINE 10 MG TAB PO SCH (09:48)
[2017-07-31] MEDS: Phentermine Hcl [Adipex-P] 37.5 MG PO SCH (10:22)
[2017-07-31 14:31] VITALS: BP 128/82; PULSE 65; TEMP 99.1; O2SAT 93
--- NOTE | 2017-07-31 16:14 | SOAPPROG ---
SOAP Progress Note Assessment/Plan: Assessment: 60-YEAR-OLD MALE ADMITTED FOR POSSIBLE SMALL BOWEL OBSTRUCTION. DOING MUCH BETTER TODAY AND RECENT THE FLATUS AND BOWEL MOVEMENT CHEST CLEAR COR REGULAR RHYTHM ABDOMEN SOFT NONTENDER WITH BOWEL SOUNDS APPEARS TO BE RESOLVING HIS BOWEL OBSTRUCTION WHICH MAY HAVE BEEN CONSTIPATION DO ABDOMEN SHOWS NO SIGNIFICANT THE EVIDENCE WITH SMALL BOWEL OBSTRUCTION AT THIS TIME Plan: HOME TODAY OF TOLERATING P.O. 07/31/17 16:13 Objective: Vital Signs Temp Pulse Resp BP Pulse Ox 37.3 C 65 14 128/82 H 93 07/31/17 12:00 07/31/17 12:00 07/31/17 12:00 07/31/17 12:00 07/31/17 12:00 Laboratory Results 07/31/17 05:03 07/31/17 05:03 07/30/17 07/31/17 08/01/17 05:59 05:59 05:59 Intake Total 2428 2459 Output Total 790 1900 Balance 1638 559 ICD10 Worksheet Patient Problems: Problems Problem Status Onset Bowel obstruction Acute S/P small bowel resection Acute Ventral incisional hernia without obstruction or gangrene Acute
--- NOTE | 2017-07-31 21:40 | GDS ---
[f rep st] DISCHARGE SUMMARY SERVICE: [facility], Later [facility] Hospitalist. CONSULTATIONS: General surgery, Drs. Elizabeth/Nicola. PROCEDURE: Abdominal x-rays. Abdominal CT. HISTORY AND PHYSICAL: Please see previously dictated note by Dr. Becerra. ADMISSION DIAGNOSES: 1. Abdominal pain, possible small-bowel obstruction. 2. Hernia. 3. History of pulmonary embolism. 4. Morbid obesity. 5. Normocytic anemia. DISCHARGE DIAGNOSES: 1. Abdominal pain, possible small-bowel obstruction. 2. Hernia. 3. History of pulmonary embolism. 4. Morbid obesity. 5. Normocytic anemia, stable. 6. Small-bowel obstruction, resolved. HOSPITAL COURSE BY PROBLEM LIST: 1. Abdominal pain with small-bowel obstruction. The patient has an ostomy site in his right lower q uadrant and noticed changes in stools along with abdominal pain, and came into the emergency departme for evaluation. He had a CT scan, which showed an area of possible small-bowel obstruction, and h e was admitted for possible surgical intervention, IV fluids and pain medications. Dr. Elizabeth was ask ed to consult, as she had seen him previously for ventral hernia repair. Decision was made to observ e patient with bowel rest. Gradually, over the course of his stay, his symptoms significantly improv ed. Subsequent abdominal x-rays showed resolution of previously noted moderate distention of small-b owel loops, and he was tolerating a clear diet without any use of pain medications for greater than 2 4 hours. He remained afebrile throughout his stay. After a discussion with Dr. Elizabeth, decision was made to discharge him to home to follow up with her as an outpatient. 2. Ventral hernia. Recent incarcerated ventral hernia repair, with a laparoscopic right-sided compl ete separation, adhesiolysis, and small-bowel resection. Initial CT scan in the emergency department confirmed that there is still an ongoing hernia, but no incarceration. Surgical consult was request ed, as above. No active issues with the hernia or the hernia repair were present, and Dr. Elizabeth will follow him up as an outpatient. 3. History of pulmonary embolism. He has a remote history of pulmonary embolism. TEDs and SCDs wer e used throughout his stay. Pharmacological intervention was not utilized because of possible surgic al intervention needed. 4. Morbid obesity. He has been working on diet and weight loss at home, and I have strongly encoura ged him to continue efforts. 5. Normocytic anemia. He was noted to have a hemoglobin of 12.2, with a normal MCV at admission. O n the day of discharge, his hemoglobin was 10.3. Review of RooT results shows anemia since his s urgery in May, would suggest that he recheck with his primary care provider as an outpatient. DISCHARGE MEDICATIONS: No change from his chronic home medications were made, other than a recommend ation to stop use of phentermine. The patient states he also plans to stop using [place] for musculosk eletal pain, as it "messes with his gut." I support this decision. He should see Dr. Elizabeth within a week. He should follow up with his primary care nurse practitioner, Anca Nascimento, within a few days. If at any time he has return of abdominal pain, change in ostomy stool output, fever, or other concer ns, he should return immediately to the emergency department for reevaluation, otherwise, he should f ollow up as above. /[id number]/MODL
== END 2017-07-31 17:04 | disposition home or self-care (01) | DRG 390 ==
LOC: CED 06:34 → CEDHOLD 08:31 → F3E 10:39
PROVIDERS: ADMIT Internal Medicine; ATTEND Internal Medicine
DX: K56.60 Unspecified intestinal obstruction (principal); Z85.038 Personal history of other malignant neoplasm of large intestine; J44.9 Chronic obstructive pulmonary disease, unspecified; E66.01 Morbid (severe) obesity due to excess calories; Z68.38 Body mass index [BMI] 38.0-38.9, adult; E03.9 Hypothyroidism, unspecified; Z96.651 Presence of right artificial knee joint; Z98.1 Arthrodesis status; Z86.711 Personal history of pulmonary embolism
CPT/HCPCS: 74177-PO; 80048-PO; 80076-PO; 83690-PO; 85025-PO; 96374; 97165-GO; G8987-GO-CI; G8988-GO-CI; G8989-GO-CI; J1170; J2405; J2765; Q9967

== ENCOUNTER 2017-11-13 12:57 | Inpatient (IN) | payer OTHER, MEDICAID ==
[2017-11-13] MEDS ORDERED: IPRATROPIUM/ALBUTEROL 3 ML DEYVIAL IH ONE (13:34)
[2017-11-13] MEDS ORDERED: DEXAMETHASONE 10 MG/ML VIAL IVP ONE (13:35)
--- NOTE | 2017-11-13 13:58 | EDPHY ---
H & P Stated Complaint: productive cough/fever Time Seen by Provider: 11/13/17 13:20 - Personal History Current Tetanus/Diphtheria Vaccine: Yes Current Tetanus Diphtheria and Acellular Pertussis (TDAP): Yes Tetanus Vaccine Date: 2012 - Medical/Surgical History Hx Asthma: Yes Hx Chronic Respiratory Disease: Yes Hx Diabetes: No Hx Cardiac Disease: No Hx Renal Disease: No Hx Cirrhosis: No Hx Alcoholism: No Hx HIV/AIDS: No Hx Splenectomy or Spleen Trauma: No Other PMH: L KNEE SCOPE, RTKA, COLON RESECTION-Colon cancer, ASTHMA, COPD- Chronic pneumonitis, CERVICAL FUSION C5-C7. MESH in abdomen-from Hernia Repair. Hypothyroidism. - Social History Smoking Status: Never smoked Constitutional: Initial Vital Signs Temperature (C) 37.7 C 11/13/17 13:23 Heart Rate 81 11/13/17 13:23 Respiratory Rate 20 11/13/17 13:23 Blood Pressure 123/85 H 11/13/17 13:23 O2 Sat (%) 84 L 11/13/17 13:23 O2 Delivery Mode Room Air Allergies/Adverse Reactions: baclofen Allergy (Severe, Verified 11/13/17 13:20) Swelling/neck,face,throat Home Medications: Medication Instructions Recorded Albuterol [Proventil Inhaler HFA 1 - 2 puffs IH DAILY PRN 05/09/17 (*)] Cyclobenzaprine [Flexeril 10 MG 10 mg PO BID 05/09/17 (*)] Diphenoxylate HCl/Atrop Sulf 1 tab PO DAILY PRN 05/09/17 [Lomotil Tab (*)] Fluticasone/Salmeter 250/50Mcg 1 puffs IH DAILY 05/09/17 [Advair 250/50 (*)] Levothyroxine [Synthroid 50 mcg 50 mcg PO DAILY06 05/09/17 (*)] Mirabegron [Myrbetriq] 25 mg PO HS 05/09/17 Sertraline HCl [Zoloft 50mg (*)] 50 mg PO HS 05/09/17 Zolpidem Tartrate [Ambien 10 mg] 10 mg PO HS 05/09/17 Acetaminophen [Tylenol 325mg (*)] 650 mg PO Q4HRS PRN tab 07/31/17 Medical Decision Making ED Course/Re-evaluation: CHIEF COMPLAINT: Cough, chest congestion HISTORY OF PRESENT ILLNESS: 62-year-old gentleman with a past medical history significant for interstitial lung disease from exposure to birds. He also has some asthma. This patient developed upper respiratory infection about 2 weeks ago which started as more of a bronchitis. He has been using [id number] expectorant and decongestants but his symptoms have been worsening. He has had intermittent fevers although he is not febrile here. He has been diligent with his long-acting and short-acting inhalers and inhaled steroids. He has also been adding albuterol nebulizer treatments over the last several days. He has not been seen or treated for this illness. REVIEW OF SYSTEMS: A 10 point review of systems was performed and is negative with the exception of the elements mentioned in the history of present illness. PHYSICAL EXAM: HR, BP, O2 Sat, RR. Temp noted General Appearance: Alert, well hydrated, appropriate, and non-toxic appearing. Head: Atraumatic without scalp tenderness or obvious injury Eyes: Pupils equal, round, reactive to light and accommodation, EOMI, no trauma , no injection. Ears: Clear bilaterally, no perforation, normal landmarks Nose: Atraumatic, no rhinorrhea, clear. Throat: There is no erythema or exudates, no lesions, normal tonsils, mucus membranes moist. Neck: Supple, 2+ carotid upstroke, nontender, no lymphadenopathy. Respiratory: No retractions, no distress, pronounced expiratory wheezes, and no accessory muscle use. Coarse rhonchi in all sullivan with prolonged expiratory phase but no significant evidence of focal consolidation Cardiovascular: Regular rate and rhythm, no murmurs, rubs, or gallops. Bilateral carotid, radial, dorsalis pedis, and posterior tibial pulses intact. Good capillary refill all extremities. Gastrointestinal: Abdomen is soft, nontender, non-distended, no masses, no rebound, no guarding, no peritoneal signs. Musculoskeletal: Normal active ROM of all extremities, atraumatic. Neurological: Alert, appropriate, and interactive. The patient has normal DTRs and non-focal cranial nerves, motor, sensory, and cerebellar exam. Skin: No rashes, good turgor, no nodules on palpation. Past medical history: Colon cancer, hernia associated with cancer surgery, asthma, bird fancier's lung (interstitial lung disease), hypothyroidism Past surgical history: Colon resection for cancer with colostomy, incisional hernia repair with mesh Family history: Noncontributory Social history: , employed, does not abuse tobacco drugs or alcohol DIAGNOSTICS/PROCEDURES/CRITICAL CARE TIME: Study: PA and Lateral Chest X-ray Indication: Shortness of breath Results: After viewing the images myself on the PACS system. My interpretation of the images is: Right lower lobe infiltrate. I discussed the findings with Lewis Garcia DIFFERENTIAL DIAGNOSIS: The differential diagnosis for the patient's shortness of breath and hypoxemia included but was not limited to pneumonia, myocardial infarction, acute mountain sickness, high altitude pulmonary edema, congestive heart failure, and pulmonary embolus. MEDICAL DECISION MAKING: Laboratory studies and chest x-ray are pending. My main concern is that this patient is significantly hypoxemic on room air. He is 84 85%. Although he does not have a significant increased work of breathing I examined him when he was on 2 L nasal cannula which brought him into the low 90s. He also has a history of underlying interstitial lung disease from exposure to birds. He is currently taking long-acting albuterol, short-acting albuterol, inhaled steroids. He has used systemic steroids in the past. I have ordered a respiratory pathogen due to his underlying lung disease and am treating him with a duo nebulizer treatment and have given him 10 mg of Decadron intravenously. The patient is not in severe respiratory distress especially when supplemental O2 is provided. This patient does not have sepsis. He does have an elevated white blood cell count and a new right lower lobe infiltrate. I discussed the x-ray with Lewis Garcia who is in agreement. I will treat this patient with ceftriaxone and azithromycin. He is not at risk for nosocomial infection. I have ready give him steroids as above. I will admit him to the hospitalist's for his hypoxemia and pneumonia. - Data Points Laboratory Results: Laboratory Results 11/13/17 13:58 11/13/17 13:58 11/13/17 11/13/17 11/13/17 13:58 13:58 13:58 WBC 10.25 10^3/uL H 10^3/uL (3.80-9.50) RBC 4.30 10^6/uL L 10^6/uL (4.40-6.38) Hgb 11.0 g/dL L g/dL (13.7-17.5) Hct 35.4 % L % (40.0-51.0) MCV 82.3 fL fL (81.5-99.8) MCH 25.6 pg L pg (27.9-34.1) MCHC 31.1 g/dL L g/dL (32.4-36.7) RDW 17.1 % H % (11.5-15.2) Plt Count 203 10^3/uL 10^3/uL (150-400) MPV 9.3 fL fL (8.7-11.7) Neut % (Auto) 76.3 % H % (39.3-74.2) Lymph % (Auto) 14.2 % L % (15.0-45.0) [place] % (Auto) 8.1 % % (4.5-13.0) Eos % (Auto) 0.9 % % (0.6-7.6) Baso % (Auto) 0.1 % L % (0.3-1.7) Nucleat RBC Rel Count 0.0 % % (0.0-0.2) Absolute Neuts (auto) 7.82 10^3/uL H 10^3/uL (1.70-6.50) Absolute Lymphs (auto) 1.46 10^3/uL 10^3/uL (1.00-3.00) Absolute Monos (auto) 0.83 10^3/uL H 10^3/uL (0.30-0.80) Absolute Eos (auto) 0.09 10^3/uL 10^3/uL (0.03-0.40) Absolute Basos (auto) 0.01 10^3/uL L 10^3/uL (0.02-0.10) Absolute Nucleated RBC 0.00 10^3/uL 10^3/uL (0-0.01) Immature Gran % 0.4 % % (0.0-1.1) Immature Gran # 0.04 10^3/uL 10^3/uL (0.00-0.10) PT 15.1 SEC H SEC (12.0-15.0) INR 1.20 H (0.83-1.16) APTT 33.4 SEC SEC (23.0-38.0) VBG Lactic Acid 0.8 mmol/L mmol/L (0.7-2.1) Sodium Potassium Chloride Carbon Dioxide Anion Gap BUN Creatinine Estimated GFR Glucose Calcium Total Bilirubin 11/13/17 13:58 WBC RBC Hgb Hct MCV MCH MCHC RDW Plt Count MPV Neut % (Auto) Lymph % (Auto) [place] % (Auto) Eos % (Auto) Baso % (Auto) Nucleat RBC Rel Count Absolute Neuts (auto) Absolute Lymphs (auto) Absolute Monos (auto) Absolute Eos (auto) Absolute Basos (auto) Absolute Nucleated RBC Immature Gran % Immature Gran # PT INR APTT VBG Lactic Acid Sodium 139 mEq/L mEq/L (134-144) Potassium 3.8 mEq/L mEq/L (3.5-5.2) Chloride 101 mEq/L mEq/L (97-110) Carbon Dioxide 25 mEq/l mEq/l (22-31) Anion Gap 13 mEq/L mEq/L (8-16) BUN 15 mg/dL mg/dL (7-23) Creatinine 0.9 mg/dL mg/dL (0.7-1.3) Estimated GFR > 60 Glucose 105 mg/dL H mg/dL (70-100) Calcium 8.3 mg/dL L mg/dL (8.5-10.4) Total Bilirubin 0.4 mg/dL mg/dL (0.1-1.4) Medications Given: Discontinued Medications Albuterol/Ipratropium (Duoneb) 3 ml IH EDNOW ONE Stop: 11/13/17 13:35 Last Admin: 11/13/17 14:14 Dose: 3 ml Dexamethasone (Decadron Injection) 10 mg IVP EDNOW ONE Stop: 11/13/17 13:36 Last Admin: 11/13/17 14:14 Dose: 10 mg Departure - Departure Disposition: [facility] Inpatient Acute Clinical Impression: Chronic obstructive pulmonary disease with acute exacerbation, Acute hypoxemic respiratory failure Pneumonia Qualifiers: Pneumonia type: due to unspecified organism Laterality: right Lung location: lower lobe of lung Qualified Code(s): J18.1 - Lobar pneumonia, unspecified organism Condition: Fair Referrals: Anca Nascimento, ORTHOTIST/PROSTHETIST [Primary Care Provider] - As per Instructions
[2017-11-13 14:09] LABS: PLATELET COUNT 203 10^3/uL (150-400)
[2017-11-13 14:20] LABS: INR 1.2 (0.83-1.16); PROTIME(PATIENT) 15.1 SEC (12.0-15.0)
[2017-11-13] MEDS ORDERED: AZITHROMYCIN IV 500 MG in NS 250 ML IV ONE (14:27)
[2017-11-13] MEDS ORDERED: AZITHROMYCIN IV 500 MG in D5W 250 ML IV ONE (16:15)
[2017-11-13] MEDS ORDERED: ACETAMINOPHEN 325 MG TAB PO PRN (16:51)
[2017-11-13] MEDS ORDERED: ONDANSETRON 4 MG/2 ML VIAL IVP PRN (16:51)
[2017-11-13] MEDS ORDERED: ONDANSETRON DISINTEGRATING 4 MG TAB PO PRN (16:51)
[2017-11-13] MEDS ORDERED: ALBUTEROL 3 ML DEYVIAL IH PRN (16:51)
[2017-11-13] MEDS: OSELTAMIVIR PHOSPHATE 75 MG CAP PO SCH (17:17)
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
[2017-11-13] MEDS ORDERED: DIPHENOXYLATE/ATROPINE LOMOTIL 1 TAB PO PRN (19:57)
[2017-11-13] MEDS: SERTRALINE HCL 50 MG TAB PO SCH (20:41)
[2017-11-13] MEDS: CYCLOBENZAPRINE 10 MG TAB PO SCH (20:41)
[2017-11-13] MEDS: HYDROCODONE/APAP 10/325 TAB PO PRN (20:41)
[2017-11-13] MEDS: ZOLPIDEM TARTRATE 5 MG TAB PO SCH (20:42)
[2017-11-13] MEDS: IPRATROPIUM/ALBUTEROL 3 ML DEYVIAL IH SCH (21:31)
[2017-11-13] MEDS: Mirabegron [Myrbetriq] 25 MG PO SCH (21:53)
[2017-11-14] MEDS: LEVOTHYROXINE 75 MCG TAB PO SCH (05:03)
[2017-11-14 05:10] LABS: PLATELET COUNT 235 10^3/uL (150-400)
[2017-11-14] MEDS: IPRATROPIUM/ALBUTEROL 3 ML DEYVIAL IH SCH ×4 (05:19→21:53)
[2017-11-14] MEDS: ENOXAPARIN 40 MG/0.4 ML SYR SC SCH (08:23)
[2017-11-14] MEDS: CYCLOBENZAPRINE 10 MG TAB PO SCH ×2 (08:23→20:24)
[2017-11-14] MEDS: predniSONE 20 MG TAB PO SCH (08:23)
[2017-11-14] MEDS: OSELTAMIVIR PHOSPHATE 75 MG CAP PO SCH ×2 (08:23→17:38)
[2017-11-14] MEDS: AZITHROMYCIN IV 500 MG in D5W 250 ML IV SCH (08:24)
--- NOTE | 2017-11-14 08:29 | HOSPPROG ---
Hospitalist Progress Note Assessment/Plan: Patient is a 62-year-old man with history of interstitial lung disease. He presented the emergency room with a cough. He had also some associated myalgias. Today is my 1st encounter with the patient. Chart reviewed. * acute influenza a infection -Tamiflu * acute hypoxemic respiratory failure -requiring oxygen * initial concern for pneumonia -procalcitonin level stable * interstitial lung disease * history of a pulmonary embolus *Morbid obesity * history of colon cancer *Plan: will re-evaluate Santos later today to see how he is feeling, possibly home later if oxygenating well Subjective: Santos appetite is good, said he was feeling very poorly on admission, but was starting to feel better. Objective: Vital Signs Temp Pulse Resp BP Pulse Ox 36.5 C 61 18 120/67 96 11/14/17 07:39 11/14/17 07:39 11/14/17 07:39 11/14/17 07:39 11/14/17 07:39 Laboratory Results 11/14/17 04:34 11/14/17 04:34 11/13/17 11/14/17 11/15/17 05:59 05:59 05:59 Intake Total 566 Balance 566 PT 15.1 SEC (12.0-15.0) H 11/13/17 13:58 INR 1.20 (0.83-1.16) H 11/13/17 13:58 - Physical Exam Constitutional: chronically ill appearing, obese Eyes: PERRL Ears, Nose, Mouth, Throat: hearing normal Cardiovascular: regular rate and rhythym Respiratory: no respiratory distress, reduced air movement Skin: warm Musculoskeletal: full muscle strength Neurologic: AAOx3 Psychiatric: interacting appropriately, not anxious ICD10 Worksheet Patient Problems: Problems Problem Status Onset Acute hypoxemic respiratory failure Acute Chronic obstructive pulmonary disease with acute exacerbation Acute Pneumonia Acute Bowel obstruction Acute S/P small bowel resection Acute Ventral incisional hernia without obstruction or gangrene Acute
[2017-11-14] MEDS: FLUTICASONE/SALMETER 250/50MCG DISKUS IH SCH (10:37)
[2017-11-14] MEDS: VANCOMYCIN 125 MG/2.5 ML UDL PO SCH ×2 (11:12→20:24)
--- NOTE | 2017-11-14 12:05 | ASMTCASEMG ---
Living Arrangements What is your living Answers: With Spouse arrangement? Who do you live with? Type Of Residence What kind of residence do Answers: House you live in? Discharge Plan Comments Coordination Status Comments Notes: Pt is a 62 y/o man admitted for PNA, hypoxemia, and COPD exacerbation. Pt started tamiflu yesterday. Pt will most likely d/c independent and have outpatient cardiac rehab when medically stable. No therapies ordered at this time. CM available for changes. Plan: Independent Date Signed: 11/14/2017 12:04 PM Electronically Signed By:DAI Collazo
--- NOTE | 2017-11-14 18:39 | PDMN ---
Medical Necessity Medical necessity: change to IP; los>2mn for acute hypoxemic resp failure r/t influenza, requiring supplemental O2 for RA sat 84; comorbid ILD, morbid obesity , hx PE, colon CA; per order and progress note 11/14/17
[2017-11-14] MEDS: HYDROCODONE/APAP 10/325 TAB PO PRN (20:24)
[2017-11-14] MEDS: Mirabegron [Myrbetriq] 25 MG PO SCH (20:24)
[2017-11-14] MEDS: ZOLPIDEM TARTRATE 5 MG TAB PO SCH (20:24)
[2017-11-14] MEDS: SERTRALINE HCL 50 MG TAB PO SCH (20:24)
[2017-11-15] MEDS: IPRATROPIUM/ALBUTEROL 3 ML DEYVIAL IH SCH ×2 (04:41→10:51)
[2017-11-15] MEDS: LEVOTHYROXINE 75 MCG TAB PO SCH (04:51)
[2017-11-15 07:35] VITALS: BP 110/71; PULSE 63; RESP 18; TEMP 97.6
[2017-11-15] MEDS: AZITHROMYCIN IV 500 MG in D5W 250 ML IV SCH (08:16)
[2017-11-15] MEDS: ENOXAPARIN 40 MG/0.4 ML SYR SC SCH (08:16)
[2017-11-15] MEDS: predniSONE 20 MG TAB PO SCH (08:16)
[2017-11-15] MEDS: CYCLOBENZAPRINE 10 MG TAB PO SCH (08:16)
[2017-11-15] MEDS: OSELTAMIVIR PHOSPHATE 75 MG CAP PO SCH (08:16)
[2017-11-15] MEDS: VANCOMYCIN 125 MG/2.5 ML UDL PO SCH (08:16)
--- NOTE | 2017-11-15 08:50 | HOSPPROG ---
Hospitalist Progress Note Assessment/Plan: Patient is a 62-year-old man with history of interstitial lung disease. He presented the emergency room with a cough. He had also some associated myalgias. * acute influenza a infection -Tamiflu * acute hypoxemic respiratory failure -requiring oxygen, RN to do room air challenge to see if he needs O2 at home * initial concern for pneumonia -procalcitonin level stable -will dc abx * interstitial lung disease -prednisone started on this visit * history of a pulmonary embolus *Morbid obesity * history of colon cancer *Plan: dc home Subjective: Murray is feeling much better today. Objective: Vital Signs Temp Pulse Resp BP Pulse Ox 36.4 C 63 18 110/71 95 11/15/17 07:35 11/15/17 07:35 11/15/17 07:35 11/15/17 07:35 11/15/17 07:35 PT 15.1 SEC (12.0-15.0) H 11/13/17 13:58 INR 1.20 (0.83-1.16) H 11/13/17 13:58 - Physical Exam Constitutional: no apparent distress, obese Eyes: PERRL Ears, Nose, Mouth, Throat: hearing normal Cardiovascular: regular rate and rhythym Respiratory: no respiratory distress, expiratory wheeze (few scattered) Gastrointestinal: normoactive bowel sounds Skin: warm Musculoskeletal: full muscle strength Neurologic: AAOx3 Psychiatric: interacting appropriately, not anxious ICD10 Worksheet Patient Problems: Problems Problem Status Onset Acute hypoxemic respiratory failure Acute Chronic obstructive pulmonary disease with acute exacerbation Acute Pneumonia Acute Bowel obstruction Acute S/P small bowel resection Acute Ventral incisional hernia without obstruction or gangrene Acute
--- NOTE | 2017-11-15 09:22 | GDS ---
[f rep st] DISCHARGE SUMMARY DISCHARGE DIAGNOSIS: 1. Acute influenza A infection. 2. Acute hypoxemic respiratory failure. 3. Initial concern for pneumonia. 4. History of lung disease. 5. History of pulmonary embolus. 6. Morbid obesity. 7. History of colon cancer. HISTORY OF PRESENT ILLNESS: Briefly, the patient is a 62-year-old man with history of interstitial lung disease. He presented the emergency room with ongoing cough. He also had some associated myalgias. It was noted that he had the influenza A. HOSPITAL COURSE: 1. Acute influenza A infection, markedly better. He is on Tamiflu. He also has underlying asthma and interstitial lung disease which likely contributed to his hypoxemia. 2. Acute hypoxemic respiratory failure. He is on 1 L of oxygen. Home O2 was ordered. 3. Initial concern for pneumonia. Procalcitonin level is stable. He is much better and has a history of C. difficile. Will stop antibiotics. 4. History of interstitial lung disease, stable. 5. History of pulmonary embolus. 6. Morbid obesity with a body mass index of 39. 7. History of colon cancer with a colostomy. DISCHARGE CONDITION: Stable. Blood pressure is 110/71, heart rate 63, respiratory rate is 18, O2 saturation on 1 L, 95%. Temperature is 36.4 Celsius. MEDICATIONS AT DISCHARGE: Please see the EMR. DISCHARGE INSTRUCTIONS: 1. Follow up with his primary care provider for further evaluation. 2. If he develops fever, chills, shortness of breath, return to the emergency room. /[id number]/MODL MTDD
--- NOTE | 2017-11-15 10:34 | PDHOMEO2F ---
Home Oxygen Face to Face Home Orders: I certify that a physician or a nurse practitioner or physician's assistant curator has had a [id number] encounter with this patient on the date of this order due to the diagnosis listed, which relates to the primary reason the patient requires home oxygen. Alternative treatments have been tried, or considered, and deemed ineffective. It is anticipated that supplemental oxygen will result in improvement with treatment. Home oxygen qualifying diagnosis: influenza Home oxygen secondary diagnosis: ILD SpO2 on room air (%): 86% Frequency of home oxygen needed: continuous Home oxygen liters per minute: 2 Home oxygen delivery device: nasal cannula Concentrator: Yes E-tanks for mobility and back up: Yes If ordering portable O2, is the patient mobile in the home?: Yes I certify that, based on these findings, the home oxygen is medically necessary for this patient for the following length of time. Length of time home oxygen needed: 99 years
[2017-11-15 10:37] VITALS: O2SAT 92
[2017-11-15] MEDS: FLUTICASONE/SALMETER 250/50MCG DISKUS IH SCH (10:54)
== END 2017-11-15 13:35 | disposition home or self-care (01) | DRG 193 ==
LOC: CED 12:57 → CEDHOLD 14:37 → F3E 16:01 → OBSVTOIN 11-14 16:17
PROVIDERS: ADMIT Student in an Organized Health Care Education/Training Program; ATTEND Student in an Organized Health Care Education/Training Program
DX: J10.00 Influenza due to other identified influenza virus with unspecified type of pneumonia (principal); J96.01 Acute respiratory failure with hypoxia; J84.9 Interstitial pulmonary disease, unspecified; E66.01 Morbid (severe) obesity due to excess calories; J45.909 Unspecified asthma, uncomplicated; E03.9 Hypothyroidism, unspecified; Z68.39 Body mass index [BMI] 39.0-39.9, adult; Z93.3 Colostomy status; Z85.118 Personal history of other malignant neoplasm of bronchus and lung; Z86.711 Personal history of pulmonary embolism
CPT/HCPCS: 71046-PO; 80048-PO; 82247-PO; 83605-PO; 85025-PO; 85610-PO; 85730-PO; 96365; G0378; J0456; J0696; J1100; J1650; J7512

== ENCOUNTER → 2017-12-27 | Outpatient (CLI) | payer OTHER, MEDICAID | LOC: CIMAGING 10:01 | PROVIDERS: ATTEND Nurse Practitioner | DX: M17.12 Unilateral primary osteoarthritis, left knee (principal); M11.262 Other chondrocalcinosis, left knee | CPT/HCPCS: 73562-PO ==

== ENCOUNTER 2018-05-17 10:42 | Inpatient (IN) | payer OTHER, MEDICAID ==
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
[2018-05-17] MEDS ORDERED: IOPAMIDOL (ISOVUE-300) 150 ML BTL ONE (11:57)
[2018-05-17 12:14] LABS: PLATELET COUNT 195 10^3/uL (150-400)
[2018-05-17] MEDS ORDERED: ONDANSETRON 4 MG/2 ML VIAL IVP ONE (12:18)
[2018-05-17] MEDS ORDERED: HYDROmorphONE/DILAUDID 2 MG/ML INJ IVP ONE (12:52)
[2018-05-17] MEDS ORDERED: ONDANSETRON 4 MG/2 ML VIAL IVP PRN (13:15)
[2018-05-17] MEDS ORDERED: ONDANSETRON DISINTEGRATING 4 MG TAB PO PRN (13:15)
[2018-05-17] MEDS ORDERED: HYDROCODONE/APAP 5/325 TAB PO PRN (13:16)
[2018-05-17] MEDS ORDERED: ACETAMINOPHEN 325 MG TAB PO PRN (13:16)
[2018-05-17] MEDS ORDERED: ALBUTEROL 60 PUFFS/8 GM MDI IH PRN (13:16)
[2018-05-17] MEDS ORDERED: oxyCODONE IR 5 MG TAB PO PRN (13:16)
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
--- NOTE | 2018-05-17 15:53 | PDMN ---
Medical Necessity Medical necessity: Pt meets IP criteria per MD; los >2 mn for eval/tx of SBO w/ worsening abdominal pain/distention; requiring NPO status, Surgery consult, IVFs & pain control; hx colon cancer s/p colectomy w/permanent colostomy; per H& P & order 05/17/18
[2018-05-17] MEDS: HYDROmorphONE/DILAUDID 1 MG/ML INJ IVP PRN ×2 (17:18→23:30)
[2018-05-17] MEDS: NS 1,000 ML IV SCH (17:27)
[2018-05-17] MEDS: SERTRALINE HCL 100 MG TAB PO SCH (20:56)
[2018-05-17] MEDS: ZOLPIDEM TARTRATE 5 MG TAB PO SCH (20:56)
[2018-05-17] MEDS: CYCLOBENZAPRINE 10 MG TAB PO SCH (20:56)
[2018-05-17] MEDS: Mirabegron [Myrbetriq] 25 MG PO SCH (20:58)
[2018-05-18] MEDS: LEVOTHYROXINE 75 MCG TAB PO SCH (05:51)
[2018-05-18] MEDS: NS 1,000 ML IV SCH (05:54)
[2018-05-18 07:02] LABS: PLATELET COUNT 160 10^3/uL (150-400)
[2018-05-18] MEDS: FLUTICASONE/SALMETER 250/50MCG DISKUS IH SCH (10:21)
--- NOTE | 2018-05-18 10:24 | ASMTCMCOM ---
CM Note CM Note Notes: Reviewed pt w/ RN, anticipate pt will dc home w/support of when medically stable. CM available for any changes. DC Plan: Indepedent Date Signed: 05/18/2018 10:23 AM Electronically Signed By:Lily Mora RN
[2018-05-18] MEDS: CYCLOBENZAPRINE 10 MG TAB PO SCH ×2 (10:38→20:35)
[2018-05-18] MEDS: ENOXAPARIN 40 MG/0.4 ML SYR SC SCH (10:38)
--- NOTE | 2018-05-18 17:12 | HOSPPROG ---
Hospitalist Progress Note Assessment/Plan: # SBO - resolving but still present on AXR - Dr Petersen to evaluate # hx colon cancer s/p resection, c/b peritonitis - permanent ostomy # ILD/chronic resp failure on noctunral O2 # morbid obesity # hx PE - provoked, off AC # hypothyroid - synthroid; outpt f/u for slightly low TSH # depr - zoloft Subjective: feels better; ate without increased pain or nausea Objective: Vital Signs Temp Pulse Resp BP Pulse Ox 36.8 C 69 14 111/72 95 05/18/18 15:56 05/18/18 15:56 05/18/18 15:56 05/18/18 15:56 05/18/18 15:56 Laboratory Results 05/18/18 04:50 05/18/18 04:50 05/17/18 05/18/18 05/19/18 05:59 05:59 05:59 Intake Total 912 Balance [address] Petersen - he will consult; AXR personally reviewed - Physical Exam Constitutional: obese Eyes: anicteric sclera Ears, Nose, Mouth, Throat: hearing normal Cardiovascular: No edema Respiratory: no respiratory distress Gastrointestinal: soft, non-tender abdomen, distension (mild on L side) Genitourinary: No pulido in urethra Skin: warm Musculoskeletal: full muscle strength Neurologic: AAOx3 Psychiatric: not anxious ICD10 Worksheet Patient Problems: Problems Problem Status Onset Abdominal pain Acute Bowel obstruction Acute Acute hypoxemic respiratory failure Acute Chronic obstructive pulmonary disease with acute exacerbation Acute Pneumonia Acute S/P small bowel resection Acute Ventral incisional hernia without obstruction or gangrene Acute
[2018-05-18] MEDS: SERTRALINE HCL 100 MG TAB PO SCH (20:35)
[2018-05-18] MEDS: ZOLPIDEM TARTRATE 5 MG TAB PO SCH (20:36)
--- NOTE | 2018-05-18 20:37 | PDGENHP ---
History & Physical Chief Complaint: HERNIA History of Present Illness: 62-YEAR-OLD MALE ADMITTED FOR CONSTIPATION BUT I WAS ASKED TO SEE HIM AFTER A VENTRAL HERNIA WAS DISCOVERED AND HE REQUESTED TO SEE ME. AT THE PRESENT TIME HE IS HAVING NO PARTICULAR SYMPTOMS AND IS TOLERATING P.O. WELL. HE IS AFEBRILE. HE HAS HAD NO VOMITING, NO FEVER, NO DRY HEAVES. CT SCAN SHOWS A LARGE MIDLINE RECURRENT VENTRAL HERNIA. IT ALSO SUGGESTS A STRICTURE AT A PREVIOUS ENTEROENTEROSTOMY Pertinent Past, Social, Family History: ALLERGIES BACLOFEN. MEDICATION FLEXERIL , ZOLOFT, ADVAIR. FAMILY HISTORY NONCONTRIBUTING. REVIEW OF SYSTEMS NEGATIVE ON A FULL 10 POINT REVIEW EXCEPT RELATED TO THE HPI. PAST MEDICAL HISTORY: COPD, COLON CANCER STATUS POST SUBTOTAL COLECTOMY, VENTRAL HERNIA REPAIR WITH MESH, SMALL BOWEL OBSTRUCTION AND RESECTION, Relevant Physical Exam: OVERWEIGHT 62-YEAR-OLD MALE IN NO ACUTE DISTRESS AT THIS TIME/AFEBRILE. HEENT PERRLA, NONICTERIC, NO ORAL LESIONS, SUPPLE. CHEST CLEAR. COR REGULAR RHYTHM WITHOUT MURMURS. ABDOMEN SOFT WITH MIDLINE SCAR AND A RIGHT LOWER QUADRANT COLOSTOMY. TO THE LEFT OF MIDLINE IS A LARGE RECURRENT VENTRAL HERNIA WHICH IS REDUCIBLE AND NOT PARTICULARLY TENDER. GENITALIA NORMAL. EXTREMITIES SOME EDEMA FULL RANGE OF MOTION POSITIVE PULSES. NEURO EXAM PHYSIOLOGIC. PSYCH EXAM ALERT, ORIENTED, COOPERATIVE Cardiorespiratory Assessment: IMPRESSION IS RECURRENT VENTRAL HERNIA. THIS MAY HAVE BEEN THE CAUSE OF HIS INITIAL SYMPTOMS BUT HE IS NOT PARTICULARLY OBSTRUCTED WITH IT NOW AND IS REDUCIBLE. WOULD RECOMMEND ELECTIVE REPAIRED HIS CONVENIENCE. HE IS PRESENTLY UNDERGOING EVALUATION FOR GASTRIC BYPASS AND HE WOULD BENEFIT FROM SIGNIFICANT WEIGHT LOSS PRIOR TO HIS HERNIA SURGERY. HOWEVER THE MAY NOT BE ABLE TO DO A GASTRIC BYPASS PROCEDURE WITH HIM WITH A LARGE AMOUNT OF BOWEL AND HIS HERNIA SAC. RISKS AND OPTIONS WERE FULLY DISCUSSED THE PATIENT. PLAN FOLLOW UP IN THE OFFICE FOR EVALUATION FOR REPAIR RECURRENT VENTRAL HERNIA
[2018-05-18] MEDS: Mirabegron [Myrbetriq] 25 MG PO SCH (20:40)
[2018-05-18] MEDS: HYDROmorphONE/DILAUDID 1 MG/ML INJ IVP PRN (21:56)
[2018-05-19] MEDS: LEVOTHYROXINE 75 MCG TAB PO SCH (06:04)
[2018-05-19] MEDS: FLUTICASONE/SALMETER 250/50MCG DISKUS IH SCH (09:06)
[2018-05-19 09:17] VITALS: BP 117/71
--- NOTE | 2018-05-19 09:38 | HOSPPROG ---
Hospitalist Progress Note Assessment/Plan: # SBO - resolving but still present on AXR - appreciate Dr Petersen seeing Santos -xray today shows improvement #Recurrent ventral hernia -Dr Petersen commented that this may have caused his initial symptoms -to f/u with Dr Petersen in the office for evaluation of repair of recurrent ventral hernia # hx colon cancer s/p resection, c/b peritonitis - permanent ostomy-has good output # ILD/chronic resp failure on nocturnal O2 # morbid obesity -patient to get a gastric sleeve surgery in the near future # hx PE - provoked, off AC # hypothyroid - Synthroid; outpt f/u for slightly low TSH # depr - zoloft #plan: dc if eating and drinking well I Subjective: Santos is feeling fine this morning. Objective: Vital Signs Temp Pulse Resp BP Pulse Ox 36.8 C 72 18 117/71 92 05/19/18 08:00 05/19/18 08:00 05/19/18 08:00 05/19/18 08:00 05/19/18 08:00 Laboratory Results 05/18/18 04:50 05/18/18 04:50 05/18/18 05/19/18 05/20/18 05:59 05:59 05:59 Intake Total 912 500 Balance 912 500 - Physical Exam Constitutional: no apparent distress, obese Eyes: PERRL Ears, Nose, Mouth, Throat: hearing normal Cardiovascular: regular rate and rhythym Respiratory: no respiratory distress Gastrointestinal: normoactive bowel sounds Skin: warm Neurologic: AAOx3 Psychiatric: interacting appropriately ICD10 Worksheet Patient Problems: Problems Problem Status Onset Abdominal pain Acute Bowel obstruction Acute Acute hypoxemic respiratory failure Acute Chronic obstructive pulmonary disease with acute exacerbation Acute Pneumonia Acute S/P small bowel resection Acute Ventral incisional hernia without obstruction or gangrene Acute
[2018-05-19] MEDS: ENOXAPARIN 40 MG/0.4 ML SYR SC SCH (10:24)
[2018-05-19] MEDS: CYCLOBENZAPRINE 10 MG TAB PO SCH (10:24)
--- NOTE | 2018-05-19 11:07 | SOAPPROG ---
[facility] Progress Note Assessment/Plan: Assessment: 62 yo well known to me with ventral hernia He has almost completed his gastric bypass work up I will call dr. hutton next week and discuss case May be able to do gastric bypass and hernia repair concurrently S: Feeling well, tender over abdomen O: Sitting up in bed CTAB RRR Abdomen soft, ventral hernia without incarceration LLQ Plan: 05/19/18 11:01 Objective: Vital Signs Temp Pulse Resp BP Pulse Ox 36.8 C 72 18 117/71 92 05/19/18 08:00 05/19/18 08:00 05/19/18 08:00 05/19/18 08:00 05/19/18 08:00 Laboratory Results 05/18/18 04:50 05/18/18 04:50 05/18/18 05/19/18 05/20/18 05:59 05:59 05:59 Intake Total 912 500 Balance 912 500 ICD10 Worksheet Patient Problems: Problems Problem Status Onset Abdominal pain Acute Bowel obstruction Acute Acute hypoxemic respiratory failure Acute Chronic obstructive pulmonary disease with acute exacerbation Acute Pneumonia Acute S/P small bowel resection Acute Ventral incisional hernia without obstruction or gangrene Acute
--- NOTE | 2018-05-19 12:26 | GDS ---
[f rep st] DISCHARGE SUMMARY DISCHARGE DIAGNOSES: 1. Small bowel obstruction secondary to a recurrent ventral hernia. 2. History of colon cancer, status post resection. 3. Interstitial lung disease. 4. Morbid obesity. 5. History of pulmonary embolism. 6. Hypothyroidism. 7. Depression. CONSULTATION: Dr. Santos Petersen. HISTORY: Briefly, the patient is a 62-year-old gentleman with a history of multiple abdominal surger ies who presented with worsening abdominal pain and distention. He has a history of colon cancer, st atus post colectomy and with a permanent colostomy. He went to a [facility] prior to his admission and , per preventive measures, he took some Lomotil. He started having increased abdominal pain. He was admitted, and there was concern he had a small bowel obstruction. He was seen and evaluated by Dr. Petersen who thought it was secondary from a ventral hernia. His symptoms have since resolved. He is e ating and drinking well. The plan is for him to further follow up with Dr. Elizabeth in the outpatient s etting. HOSPITAL COURSE: 1. Small bowel obstruction. This is resolved. The x-ray today shows marked improvement. This is l ikely secondary to recurrent ventral hernia. Further followup with Dr. Elizabeth. 2. History of colon cancer. He is status post resection. His ostomy has good output. 3. Interstitial lung disease, chronic respiratory failure. He is on nocturnal oxygen. 4. Morbid obesity. He is to get a gastric sleeve surgery soon, so he will be able to get ultimately knee surgery. 5. History of PE. This was provoked. He is not on anticoagulation. 6. Hypothyroidism. He is on Synthroid. His TSH is slightly low. Recommend he get a repeat TSH in 6 weeks. 7. Depression, stable. He is on Zoloft. DISCHARGE CONDITION: Stable. Blood pressure is 117/71, respiratory rate of 18, pulse is 72, tempera ture is 36.8 Celsius, O2 sats on room air are 92%. MEDICATIONS AT DISCHARGE: Please see the EMR. DISCHARGE INSTRUCTIONS: 1. Follow up Dr. Elizabeth. She will discuss with the gastric sleeve surgeon if they can do his hernia repair at the same time. 2. If he develops decreased output from his ostomy, to return to the ER. 3. To get a repeat TSH in 6 weeks. /[id number]/MODL
== END 2018-05-19 14:10 | disposition home or self-care (01) | DRG 394 ==
LOC: OBSVTOIN 13:51 → F3E 13:58
PROVIDERS: ADMIT Student in an Organized Health Care Education/Training Program; ATTEND Family Medicine
DX: K43.6 Other and unspecified ventral hernia with obstruction, without gangrene (principal); Z85.038 Personal history of other malignant neoplasm of large intestine; Z90.49 Acquired absence of other specified parts of digestive tract; Z93.3 Colostomy status; J84.9 Interstitial pulmonary disease, unspecified; J96.11 Chronic respiratory failure with hypoxia; Z99.81 Dependence on supplemental oxygen; E66.01 Morbid (severe) obesity due to excess calories; Z68.41 Body mass index [BMI] 40.0-44.9, adult; E03.9 Hypothyroidism, unspecified; F32.9 Major depressive disorder, single episode, unspecified; Z86.711 Personal history of pulmonary embolism; Z98.1 Arthrodesis status
CPT/HCPCS: 82435-PO; 82565-PO; 82947-PO; 84132-PO; 84295-PO; 84520-PO; 85014-PO; 96374; J1170; J1650; J2405; Q9967

== ENCOUNTER 2019-02-25 07:29 | Observation (INO) | payer OTHER, MEDICAID ==
--- NOTE | 2019-02-24 16:16 | GHP ---
[f rep st] PREOP HISTORY AND PHYSICAL DATE OF ADMISSION: 02/25/2019 HISTORY: The patient is a 63-year-old male who presents with severe left knee osteoarthritis, tricom partment, [id number] by x-rays and MRI in the medial compartment. He has had considerable conserva tive management of his knee that has included appropriate exercises, steroid injection, viscosuppleme ntation. MRI confirms the severe osteoarthritis and [id number]-[id number] wear in the medial compartment. He had a sharp stabbing pain, difficulty weightbearing and a sense of instability. Medial joint line p ain, stiffness, alterations of his gait, and this impacts his quality of life including activities of daily living. Of significance, he has been morbidly obese and he has undergone a gastric sleeve pro cedure and has lost 60 pounds. He has made sure with his gastric procedure surgeon that he is a cand idate for a knee surgery. Labs have been followed and have been appropriate. He has no history of h ypertension or diabetes or sleep apnea. A left total knee arthroplasty is planned. PAST MEDICAL HISTORY: Remarkable for hypothyroid, also pneumonitis. He has had a gastric sleeve pro cedure in August of 2018. He has had a right total knee arthroplasty years ago. He has had a C-spi ne fusion at C5,6, 7. He has a history of colon cancer requiring a colon resection and an ostomy. Joel jefferson has had knee scopes. MEDICATIONS: Include Ambien, Vicodin, Flexeril, levothyroxine, sertraline and supplements. ALLERGIES: He has an allergy to baclofen. SOCIAL HISTORY: He is a nonsmoker. REVIEW OF SYSTEMS: Negative for cardiac disease. Does have a history of pneumonitis. He denies sle ep apnea. PHYSICAL EXAM: GENERAL: The patient is a well-developed, well-nourished male in no apparent distres s. HEAD AND NECK: Normocephalic, atraumatic. CHEST: Clear. CARDIOVASCULAR: Regular rate and rhyt hm. ABDOMEN: Soft. NEUROLOGICAL: He is alert and oriented x3. EXTREMITIES: Examination of the l eft knee, he does have full extension, about 120 degrees of flexion. His skin is intact. Sensation and perfusion intact. X-rays have been described with tricompartment osteoarthritis, joint space narrowing, subchondral scl erosis, degenerative lipping, [id number]-eb-[id number] contact in the medial compartment. IMPRESSIONS: Left knee osteoarthritis. PLAN: Left total knee arthroplasty. Benefits and risks of surgery have been reviewed with the patie nt. He understands that the risks include infection, damage to blood vessel or nerve, failure or loo sening of components and need for revision, blood clot in leg or lungs, bleeding and need for transfu yue. He has undergone a total knee on the opposite side, so I think he understands the rigorous cara ure of the recovery process. We have discussed pain management strategies. He has signed his consen t form and wishes to proceed. /[id number]/MODL
[~2019-02-25 07:29] MED LIST changes: +ACETAMINOPHEN 325 MG TAB PO ONE; +DEXAMETHASONE 4 MG/ML VIAL IVP ONE; +FAMOTIDINE 20 MG TAB PO ONE; +GABAPENTIN 300 MG CAP PO ONE; +LR 1,000 ML IV ONE; +ONDANSETRON 4 MG/2 ML VIAL IVP ONE; +POVIDONE-IODINE 20 ML in SODIUM CL IRRIG SOLUTION 500 ML IRR ONE; +ROPIVACAINE 0.2% 80 MG, EPINEPHrine 0.2 MG, KETOROLAC TROMETHAMINE 30 MG in SYRINGE 0 ML IU ONE; +TRANEXAMIC ACID 1,000 MG in NS 100 ML IV ONE; +ceFAZolin 2 GM/DEXTROSE 100 ML IV ONE; -ceFAZolin 3 GM in D5W 100 ML IV ONE
[2019-02-25] MEDS ORDERED: ceFAZolin 1 GM/5 ML SYR ONE (09:01)
[2019-02-25] MEDS ORDERED: MIDAZOLAM 2 MG/2 ML VIAL IVP ONE (09:45)
--- NOTE | 2019-02-25 09:53 | PDANEPAE ---
ANE Past Medical History - Cardiovascular History Hx Hypertension: No Hx Arrhythmias: No Hx Chest Pain: No Hx Coronary Artery / Peripheral Vascular Disease: No Hx CHF / Valvular Disease: No Hx Palpitations: No - Pulmonary History Hx COPD: Yes Hx Asthma/Reactive Airway Disease: Yes Hx Recent Upper Respiratory Infection: No Hx Oxygen in Use at Home: Yes Hx Sleep Apnea: No Sleep Apnea Screening Result - Last Documented: Negative Pulmonary History Comment: CHRONIC PULMONARY PNEUMONITIS. 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 PE 2004 - Neurologic History Hx Cerebrovascular Accident: No Hx Seizures: No Hx Dementia: No - Endocrine History Hx Diabetes: No Endocrine History Comment: HYPOTHYROID - Renal History Hx Renal Disorders: No Renal History Comment: KIDNEY FAILURE POST SURGERY WITH BOWEL RESECTION - NOW RESOLVED - Liver History Hx Hepatic Disorders: No - Neurological & Psychiatric Hx Hx Neurological and Psychiatric Disorders: Yes Neurological / Psychiatric History Comment: ANXIETY/DEPRESSION. neuropathy in both feet/hands - Cancer History Hx Cancer: Yes Cancer History Comment: COLON CANCER - Congenital Disorder History Hx Congenital Disorders: No - GI History Hx Gastrointestinal Disorders: Yes Gastrointestinal History Comment: COLON RESECTION/COLOSTOMY. intermittent diarrhea. colostomy - Other Health History Other Health History: DUMPING SYNDROME. abdominal surgical incision irritation small scab. dentures - Chronic Pain History Chronic Pain: Yes (neck, shoulder, lower back) - Surgical History Prior Surgeries: BOWEL RESECTION W/COLOSTOMY. L KNEE SURG. R TKA. CERVICAL FUSION. gastric bypass 09/11/18. HERNIA REPAIR ANE Review of Systems Review of Systems: - Exercise capacity METS (RN): 4 METS ANE Patient History - Allergies Allergies/Adverse Reactions: baclofen Allergy (Severe, Verified 05/17/18 10:52) Swelling/neck,face,throat - Home Medications Home Medications: Cyclobenzaprine [Flexeril 10 MG (*)] 10 mg PO BID PRN 05/09/17 [Last Taken 02/24 22:00] Zolpidem Tartrate [Ambien 10 mg] 10 mg PO HS 05/09/17 [Last Taken 02/24/19 22:00 ] HYDROcodone/APAP 10/325 [Margie 10/325 (*)] 1 tab PO Q12H PRN 11/13/17 [Last Taken 02/24/19 22:00] Levothyroxine [Synthroid 75 mcg (*)] 75 mg PO DAILY@06 11/13/17 [Last Taken 05:00] Sertraline HCl [Zoloft 25mg (*)] 25 mg PO DAILY 02/22/19 [Last Taken 02/24/19 23 :50] - NPO status NPO Since - Liquids (Date): 02/24/19 NPO Since - Liquids (Time): 23:55 NPO Since - Solids (Date): 02/24/19 NPO Since - Solids (Time): 22:00 - Smoking Hx Smoking Status: Never smoked - Family Anes Hx Family Hx Anesthesia Complications: none ANE Labs/Vital Signs - Labs - CBC Platelet Count: 218 - Vital Signs Blood Pressure: 112/71 Heart Rate: 69 Respiratory Rate: 16 O2 Sat (%): 89 Height: 173.99 cm Weight: 99.79 kg ANE Physical Exam - Airway Neck exam: FROM Mallampati Score: Class 2 Mouth exam: dentures - Pulmonary Pulmonary: clear to auscultation - Cardiovascular Cardiovascular: regular rate and rhythym - ASA Status ASA Status: II ANE Anesthesia Plan Anesthesia Plan: spinal Regional Anesthesia: single shot NB, adductor canal FNB, POPC/PSR
[2019-02-25] MEDS ORDERED: BUPIVACAINE/DEXTROSE 7.5MG/ML 2 ML SPINAL AMP SP ONE (09:54)
[2019-02-25] MEDS ORDERED: PROPOFOL/EMULSION 500 MG/50 ML BOTTLE IV ONE (09:54)
[2019-02-25] MEDS ORDERED: METOCLOPRAMIDE 10 MG/2 ML VIAL ONE (09:55)
--- NOTE | 2019-02-25 09:59 | PDHPUP ---
History & Physical Update H&P update statement: This history and physical update is based on an assessment of the patient which was completed after admission or registration (within 24 hours), but prior to the surgery/procedure. no change H&P update: no change in patient's condition since H&P completed (no change)
[2019-02-25] MEDS ORDERED: ROPIVACAINE HCL 150 MG/30 ML INJ ONE (11:29)
[2019-02-25] MEDS ORDERED: LR 500 ML IV PRN (11:33)
[2019-02-25] MEDS ORDERED: fentaNYL 100 MCG/2 ML INJ IVP PRN (11:33)
[2019-02-25] MEDS ORDERED: PROMETHAZINE HCL 25 MG/ML INJ IVP PRN ×2 (11:33→12:03)
[2019-02-25] MEDS ORDERED: NALOXONE HCL 0.4 MG/ML INJ IVP PRN (11:33)
[2019-02-25] MEDS ORDERED: HYDROmorphONE/DILAUDID 1 MG/ML INJ IVP PRN (11:33)
[2019-02-25] MEDS ORDERED: ONDANSETRON 4 MG/2 ML VIAL IVP PRN ×2 (11:33→12:03)
[2019-02-25] MEDS ORDERED: ALBUTEROL 3 ML DEYVIAL IH PRN (11:33)
[2019-02-25] MEDS ORDERED: diphenhydrAMINE 25 MG CAP PO PRN (12:03)
[2019-02-25] MEDS ORDERED: ONDANSETRON DISINTEGRATING 4 MG TAB PO PRN (12:03)
[2019-02-25] MEDS ORDERED: PROMETHAZINE HCL 25 MG SUPPR PR PRN (12:03)
[2019-02-25] MEDS ORDERED: MAGNESIUM HYDROXIDE 30 ML UDCUP PO PRN (12:03)
[2019-02-25] MEDS ORDERED: TEMAZEPAM 15 MG CAP PO PRN (12:03)
[2019-02-25] MEDS ORDERED: LACTULOSE 20 GM/30 ML UDCUP PO PRN (12:03)
[2019-02-25] MEDS ORDERED: KETOROLAC 15 MG/1 ML SDV IVP ONE (12:03)
[2019-02-25] MEDS ORDERED: METOCLOPRAMIDE 10 MG/2 ML VIAL IVP PRN (12:03)
[2019-02-25] MEDS ORDERED: BISACODYL 10 MG SUPP PR PRN (12:03)
[2019-02-25] MEDS ORDERED: DIPHENOXYLATE/ATROPINE LOMOTIL 1 TAB PO PRN (12:03)
[2019-02-25] MEDS ORDERED: POLYETHYLENE GLYCOL 3350 17 GM PKT PO PRN (12:03)
[2019-02-25] MEDS ORDERED: CYCLOBENZAPRINE 10 MG TAB PO PRN (12:09)
[2019-02-25] MEDS ORDERED: KETOROLAC 15 MG/1 ML SDV ONE (12:22)
[2019-02-25] MEDS ORDERED: LR 1,000 ML IV SCH (12:30)
--- NOTE | 2019-02-25 12:33 | GOP ---
[f rep st] OPERATIVE REPORT DATE OF OPERATION: SURGEON: Roque Coughlin MD RET[employer] EVENT [employer] SALES ASSISTANT: ARIEL Tijerina LSA ANESTHESIOLOGIST: Dr. Dumont PREOPERATIVE DIAGNOSIS: Left knee osteoarthritis. POSTOPERATIVE DIAGNOSIS: Left knee osteoarthritis. PROCEDURE PERFORMED: Left total knee arthroplasty. FINDINGS: SPECIMENS: Include excised bone. ESTIMATED BLOOD LOSS: Minimal. INDICATIONS: The patient is a 63-year-old male who presents with history, exam, and x-rays consisten t with severe left knee osteoarthritis. It is most severe in the medial compartment, which is bone-t o-bone. He has tried appropriate conservative measures and wishes to proceed with his total knee rep lacement. DESCRIPTION OF PROCEDURE: The patient was taken to the operating room, and in the seated position on the OR table, a spinal anesthetic was administered by Dr. Dumont. He then received IV sedation, receiv ed preoperative antibiotics, 2 g of Ancef, as well as tranexamic acid. A tourniquet was fit high on the left thigh and the left leg was prepped and draped with chlorhexidine in the usual fashion. The limb was elevated, exsanguinated, and the tourniquet inflated to 275 mmHg. I made a longitudinal incision in the midline, dissected through subcutaneous tissue, used a medial p arapatellar arthrotomy. The patella was inverted, I removed 9 mm of cartilage and bone, and sized th e patella to a 35 mm implant. I drilled peg holes. Trial reduction with the trial implant restored the thickness of the patella. I then moved onto the femur. I drilled a commercial drone pilot hole in the femur and used an intramedullary device and there was no flexion contracture, so I made a simple 5 degree dista l femoral cut. I sized the femur to a size 5. I used cutting block to complete the anterior, pallet assembler ior and chamfer cuts, and the trial component was a good fit. I exposed the tibia using the extramed ullary device with which I dialed the posterior slope, rotation, depth of cut, completed my tibial cu t, and I sized this to a 4, I dialed in the rotation marking it on the front of the tibia and I compl eted the tibial preparation. All the components were removed and all the surfaces were lavaged with antibiotic solution. All the components were cemented. Femur size 5, tibia size 4, patella 35 mm, a nd then once the cement had hardened, I did trial reductions and an 11 mm articular insert was used. The tourniquet was let down after about an hour. I infiltrated a joint cocktail. I rinse the joint with Betadine solution and sterile saline antibiotic solution. The arthrotomy was closed with interr upted 0 sutures of 0 Mersilene, subcutaneous tissue was closed with 2-0 Monocryl, and the skin with a running 4-0 Quill suture. The wound was glued. Steri-Striped. I used, 4x4s, sterile Webril, a PRERNA stocking and an Diallo wrap. SUMMARY OF COMPONENTS: This is a [employer] knee, bi-cruciate stabilized, all componen ts cemented. The femur is ceramic and the articular tray is cross-linked polyethylene. The femur is a size 5, the tibia size 4, patella 35 mm. The articular tray is 11 mm. My rn neurosurgical, Avinash Tay, was a medical necessity for this total joint replacement for s oft tissue retraction and leg positioning. DISPOSITION: The patient was taken in stable condition to recovery. COMPLICATIONS: There were no complications. DRAINS: No drains. COUNTS: All counts were correct, and the patient was taken in stable condition to recovery. /[id number]/MODL
--- NOTE | 2019-02-25 14:32 | SOAPPROG ---
SOAP Progress Note Assessment/Plan: Assessment: s/p left TKA - procedure earlier this morning Plan: Begin discharge planning - likely tomorrow; going home with the support of his ; outpatient PT already scheduled Continue VTE prophylaxis with aspirin 81 mg BID, Yisel, PRERNA clark - he will continue aspirin at home for 3 weeks Continue pain management - pain tolerable at this time - has Celebrex, Tylenol and Oxycodone ordered Continue PT efforts Post-operative x-rays revealed stable anatomic alignment, no fracture or lucency Subjective: Patient states he is feeling good at this time. He reports being familiar with the recovery process since he had right TKA years ago. Patient is hoping to go home tomorrow and will have the support of his at home. Patient has already scheduled outpatient PT. He denies shortness of breath, chest pain, fever, chills, nausea, vomiting. Objective: Vital Signs Temp Pulse Resp BP Pulse Ox 36.4 C 57 L 14 121/81 H 97 02/25/19 14:27 02/25/19 14:27 02/25/19 14:27 02/25/19 14:27 02/25/19 14:27 02/24/19 02/25/19 02/26/19 05:59 05:59 05:59 Intake Total 700 Output Total 10 Balance 690 Patient resting comfortably in bed, no acute distress. His is also present. LLE: Surgical wound dressings are clean, dry and intact. Lower leg compartments are soft and nontender. He can actively DF and PF the left foot and great toe. Grossly NVI distally. ICD10 Worksheet Patient Problems: Problems Problem Status Onset Unilateral primary osteoarthritis, left knee Acute Abdominal pain Acute Acute hypoxemic respiratory failure Acute Bowel obstruction Acute Chronic obstructive pulmonary disease with acute exacerbation Acute Pneumonia Acute S/P small bowel resection Acute Ventral incisional hernia without obstruction or gangrene Acute
--- NOTE | 2019-02-25 15:25 | POSTANESTH ---
Post Anesthetic Evaluation Cardiovascular Status: Normal, Stable Respiratory Status: Normal, Stable Level of Consciousness/Mental Status: Can Participate in Eval Pain Control: Adequate, Prn Tx Ordered Nausea/Vomiting Control: Adequate, Prn Tx Ordered Complications Possibly Related to Anesthesia: None Noted
[2019-02-25] MEDS: ceFAZolin 2 GM/DEXTROSE 100 ML IV SCH ×2 (16:03→22:14)
[2019-02-25] MEDS: ACETAMINOPHEN 325 MG TAB PO SCH (18:25)
[2019-02-25] MEDS: oxyCODONE IR 5 MG TAB PO PRN ×2 (18:25→22:13)
[2019-02-25] MEDS: ASPIRIN 81 MG CHEWABLE TAB PO SCH (20:35)
[2019-02-25] MEDS: SENNOSIDES/DOCUSATE SODIUM TAB PO SCH (20:35)
[2019-02-25] MEDS: FAMOTIDINE 20 MG TAB PO SCH (20:35)
[2019-02-25] MEDS ORDERED: ZOLPIDEM TARTRATE 5 MG TAB PO SCH (21:00)
[2019-02-26] MEDS: ACETAMINOPHEN 325 MG TAB PO SCH ×3 (00:15→14:25)
[2019-02-26] MEDS ORDERED: LEVOTHYROXINE 75 MCG TAB PO SCH ×2 (06:00)
[2019-02-26 07:44] VITALS: BP 97/60
--- NOTE | 2019-02-26 08:12 | SOAPPROG ---
SOAP Progress Note Assessment/Plan: Assessment: POD 1 left TKA Anemia: level is expected initially post-operatively. Asymptomatic. Continue to monitor. Plan: Continue discharge planning - Patient has done better than anticipated and would like to be discharged to home today. Patient must be released from PT before discharge to home. He will have the support of his at home. He already has outpatient PT scheduled. Continue VTE prophylaxis aspirin 81 mg BID x 3 weeks, PRERNA clark. Continue pain management - he already has scripts for Celebrex and oxycodone ( for break through pain). Change wound dressings prior to discharge. Subjective: Patient states he is doing well, reports "there is virtually no left knee pain at this time." He has also noticed improvement in his lower back pain since yesterday's surgery. He is hoping to go home today. He has already scheduled outpatient PT. Patient reports having a pain medication contract and has enough pain medication to help post-operatively. Patient has been able to void spontaneously. He denies shortness of breath, chest pain, fever, chills, nausea , vomiting. Objective: Vital Signs Temp Pulse Resp BP Pulse Ox 36.4 C 58 L 16 97/60 L 97 02/26/19 07:44 02/26/19 07:44 02/26/19 07:44 02/26/19 07:44 02/26/19 07:44 Laboratory Results 02/26/19 06:13 02/25/19 02/26/19 02/27/19 05:59 05:59 05:59 Intake Total 1800 100 Output Total 410 200 Balance 1390 -100 Patient is resting comfortably in bed, no acute distress. LLE: Surgical wound dressings are clean, dry and intact. Lower leg compartments are soft and nontender. HE can actively DF and PF his foot and great toe. Grossly NVI distally. ICD10 Worksheet Patient Problems: Problems Problem Status Onset Unilateral primary osteoarthritis, left knee Acute Abdominal pain Acute Acute hypoxemic respiratory failure Acute Bowel obstruction Acute Chronic obstructive pulmonary disease with acute exacerbation Acute Pneumonia Acute S/P small bowel resection Acute Ventral incisional hernia without obstruction or gangrene Acute
[2019-02-26] MEDS: SENNOSIDES/DOCUSATE SODIUM TAB PO SCH (08:56)
[2019-02-26] MEDS: ASPIRIN 81 MG CHEWABLE TAB PO SCH (08:57)
[2019-02-26] MEDS: oxyCODONE IR 5 MG TAB PO PRN (08:57)
[2019-02-26] MEDS: FAMOTIDINE 20 MG TAB PO SCH (08:57)
[2019-02-26] MEDS ORDERED: SERTRALINE HCL 25 MG TAB PO SCH (09:00)
--- NOTE | 2019-02-26 09:19 | ASMTLACE ---
LACE Length of stay for Answers: 2 days current admission Acuity / Level of Answers: No Care: Did the patient have an inpatient admission? Comorbidities - select Answers: Chronic pulmonary disease all that apply Opioid dependence / Chronic pain Other Notes: Hx of colon cancer; Hypothyroid # of Emergency department Answers: 0 visits in the last 6 months Score: 9 Date Signed: 02/26/2019 09:19 AM Electronically Signed By:TOMMIE Moreno
--- NOTE | 2019-02-26 09:23 | ASMTCMCOM ---
CM Note CM Note Notes: Pt had planned knee surgery, resides with spouse. PT rec home/outpatient, MD rec outpatient. Pt has DME and outpatient PT scheduled. No CM d/c needs identified. Date Signed: 02/26/2019 09:22 AM Electronically Signed By:TOMMIE Moreno
== END 2019-02-26 13:37 | disposition home or self-care (01) ==
LOC: F3N 07:29
PROVIDERS: ADMIT Orthopaedic Surgery; ATTEND Orthopaedic Surgery
PROC: 0SRC0J9 Replacement of Right Knee Joint with Synthetic Substitute, Cemented, Open Approach (ICD-10-PCS; principal; 2019-02-25 09:30)
DX: M17.11 Unilateral primary osteoarthritis, right knee (principal); E03.9 Hypothyroidism, unspecified; E66.9 Obesity, unspecified; Z98.84 Bariatric surgery status; Z85.038 Personal history of other malignant neoplasm of large intestine; Z98.1 Arthrodesis status; Z96.651 Presence of right artificial knee joint; Z68.33 Body mass index [BMI] 33.0-33.9, adult
CPT/HCPCS: 27447; 73560; 88311; 97116; 97161; 97165; 97530; C1713; C1776; J0171; J0690; J1100; J1885; J2250; J2704; J2765; J2795